=== PATIENT | female | born 1930 | race Caucasian/White ===

== ENCOUNTER 2017-01-11 12:29 | Inpatient (IN) ==
[2017-01-11 14:43] LABS: Basophils # 0.1 K/mcL (0.0-0.2); Basophils % 0.6 %; Eosinophils # 0.2 K/mcL (0.0-0.6); Eosinophils % 1.3 %; Hemoglobin 11.8 g/dL (11.5-15.4); Immature Granulocytes % 0.4 % (0-4); Lymphocytes # 1.9 K/mcL (0.6-4.6); Lymphocytes % 16.5 %; Mean Corpuscular HGB Conc 31.9 g/dL (31.6-35.5); Mean Corpuscular Hemoglobin 26.9 pg (28.0-33.3); Mean Corpuscular Volume 84.5 fL (83.0-100.0); Mean Platelet Volume 10.7 fL (9.4-12.4); Monocytes % 8.8 %; Neutrophils # 8.1 K/mcL (1.6-8.9); Platelet Count 300 K/mcL (140-400); Red Blood Count 4.38 M/mcL (3.82-4.97); Segmented Neutrophils % 72.4 %
[2017-01-11 14:58] LABS: Albumin 3.4 g/dL (3.5-5.0); Albumin/Globulin Ratio 0.9 (1.1-2.2); Bilirubin,Direct 0.3 mg/dL (0.0-0.5); Bilirubin,Indirect 0.5 mg/dL (0.0-1.2); Bilirubin,Total 0.8 mg/dL (0.2-1.2); Calcium 9.6 mg/dL (8.6-10.8); Potassium 4.5 mEq/L (3.5-4.5); Total Protein 7.4 g/dL (6.0-8.3)
--- NOTE | 2017-01-11 15:56 | Emergency Department Note ---
Disposition Clinical Impression: Epigastric pain, Bigeminal rhythm, Elevated troponin Disposition: Admitted As Inpatient Condition: Undetermined Time of Disposition: 17:32 Abdominal Pain HPI - General Chief Complaint: ED Abdominal Pain Stated Complaint: Very sick/stomach ache Time Seen by Provider: 01/11/17 15:29 Source: patient Mode of arrival: ambulatory Limitations: no limitations Nursing Notes Reviewed: Yes Vital Signs Reviewed: Yes - History of Present Illness HPI Narrative: 86-year-old female arrives to [facility] emergency department complaining of multiple complaints including generalized weakness, nausea without vomiting, diarrhea with multiple episodes as well as abdominal pain. The patient states that this pain in her abdomen has been intermittent over the course of the past 3 weeks but acutely worsened over the past 3-4 days. The patient states that she had one episode of black colored stool. She states that his abdominal pain is not normal for her. The patient does admit to intermittent chest pain as well. The patient has some exertional dyspnea that she is also complaining of. The patient denies any other complaints at this time and is resting comfortably in the bed. The patient's vital signs are reassuring here in the emergency Department with any acute findings. Onset (ago): day(s) (4 on ongoing over 3 weeks) Consistency: intermittent, Worsening Location: diffuse Pain Severity: moderate Pain Scale: 8 Quality: cramping Radiation: LUQ, LLQ Migration to: periumbilical Improves with: nothing Worsens with: nothing Associated symptoms: Reports: nausea, diarrhea, melena Treatments prior to arrival: none - Related Data Home Medications Medication Instructions Recorded Confirmed Ascorbate Calcium [Vitamin C] 500 mg PO DAILY 01/11/17 01/11/17 Diltiazem HCl [Diltiazem 24Hr Cd] 120 mg PO DAILY 01/11/17 01/11/17 Ferrous Gluconate 324 mg PO DAILY 01/11/17 01/11/17 Furosemide [Lasix] 40 mg PO DAILY 01/11/17 01/11/17 HYDROcodone/Acet 5/325 mg [[place] 0.5 - 1 tab PO BID PRN 01/11/17 01/11/17 5-325 mg] Levothyroxine [Synthroid] 100 mcg PO 0630 01/11/17 01/11/17 Simvastatin [Zocor] 40 mg PO HS 01/11/17 01/11/17 Allergies Allergy/AdvReac Type Severity Reaction Status Date / Time No Known Allergies Allergy Verified 01/11/17 12:53 All systems ED: reviewed and negative except as stated. Constitutional: Denies: fever, chills, weakness, weight change Cardiovascular: Reports: chest pain, dyspnea on exertion. Denies: palpitations , edema, syncope Respiratory: Reports: dyspnea. Denies: cough, wheezes, hemoptysis, stridor Gastrointestinal: Reports: abdominal pain, nausea, diarrhea, melena. Denies: vomiting, constipation, hematemesis, hematochezia Musculoskeletal: Denies: back pain, neck pain, arthralgia, myalgia Integumentary: Denies: rash, abrasion, lesions Neurological: Denies: headache, weakness, numbness, paresthesias, confusion, abnormal gait, vertigo Abdominal Pain PMH - Past Medical History Medical history: Reports: diabetes, hyperlipidemia, hypertension, thyroid disease Female Surgical History: Reports: cholecystectomy Psychiatric history: Reports: no psych history - Social History Smoking status: Former smoker Alcohol use: Reports: none Drug use: Reports: none Physical Exam - General Limitations: no limitations General appearance: alert, in no apparent distress - Head Head exam: atraumatic, normocephalic, normal inspection - ENT ENT exam: normal exam, normal oropharynx, mucous membranes moist - Neck Neck exam: Present: normal inspection, full ROM, trachea midline - Chest Chest inspection: Present: normal inspection, symmetric chest wall rise - Respiratory Respiratory exam: Present: normal lung sounds bilaterally - Cardiovascular Cardiovascular exam: Present: regular rate, normal rhythm, normal heart sounds - Abdominal Exam Abdominal exam: Present: soft, tenderness (Left sided and periumbilical), guarding (Voluntary). Absent: distention, rebound, rigidity, Ohara's sign, Rovsing's sign, tenderness at McBurney's Point, pulsatile mass, scar - Extremities Exam Extremities exam: Present: normal inspection, full ROM. Absent: tenderness, pedal edema Course Vital Signs Temperature 98.8 F 01/11/17 12:53 Pulse Rate 66 01/11/17 12:53 Respiratory Rate 16 01/11/17 12:53 Blood Pressure 164/69 01/11/17 12:53 O2 Sat by Pulse Oximetry 95 01/11/17 12:53 Temperature 98.6 F 01/12/17 19:41 Pulse Rate 59 01/12/17 19:41 Respiratory Rate 16 01/12/17 19:41 Blood Pressure 156/61 01/12/17 19:41 O2 Sat by Pulse Oximetry 97 01/12/17 19:41 Oxygen Delivery Oxygen Delivery Room Air Abdominal Pain - MDM Narrative Medical decision making narrative: His workup here in the emergency department demonstrates an elevated troponin. With the patient's of bigeminal pattern combined with this elevation in troponin and chest pain, we will admit the patient for ACS rule out. In addition the patient does have epigastric pain consistent with a gastric ulcer which is also reinforced my findings on the CT scan. The patient was given 1 dose of Protonix here in the emergency department. We will admit the patient to the hospitalist at this time. Patient agrees to plan. Accepted by Dr. Reid. - Lab Data Lab results reviewed: Yes I reviewed the patient's lab results. Result diagrams: 01/12/17 09:49 01/12/17 01:45 Lab Results 01/11/17 01/11/17 01/11/17 Range/Units 14:37 14:37 14:37 WBC 11.2 H (4.3-11.1) K/mcL RBC 4.38 (3.82-4.97) M/mcL Hgb 11.8 (11.5-15.4) g/dL Hct 37.0 (35.3-44.9) % MCV 84.5 (83.0-100.0) fL MCH 26.9 L (28.0-33.3) pg MCHC 31.9 (31.6-35.5) g/dL RDW 15.0 H (11.5-14.5) % Plt Count 300 (140-400) K/mcL MPV 10.7 (9.4-12.4) fL Immature Gran % 0.4 (0-4) % Seg Neutrophils % 72.4 % Lymphocytes % 16.5 % Monocytes % 8.8 % Eosinophils % 1.3 % Basophils % 0.6 % Neutrophils # 8.1 (1.6-8.9) K/mcL Lymphocytes # 1.9 (0.6-4.6) K/mcL Monocytes # 1.0 (0.0-1.3) K/mcL Eosinophils # 0.2 (0.0-0.6) K/mcL Basophils # 0.1 (0.0-0.2) K/mcL Sodium 138 (136-145) mEq/L Potassium 4.5 (3.5-4.5) mEq/L Chloride 106 (98-109) mEq/L Carbon Dioxide 20 (19-29) mEq/L BUN 57 H (7-20) mg/dL Creatinine 3.27 H (0.57-1.11) mg/dL Est GFR ( Amer) 16 L (> 60) Est GFR (Non-Af Amer) 13 L (> 60) BUN/Creatinine Ratio 17 (6-26) Glucose 241 H (70-99) mg/dL Calculated Osmolality 310 H (280-300) Calcium 9.6 (8.6-10.8) mg/dL Total Bilirubin 0.8 (0.2-1.2) mg/dL Direct Bilirubin 0.3 (0.0-0.5) mg/dL Indirect Bilirubin 0.5 (0.0-1.2) mg/dL AST 16 (5-34) Units/L ALT 13 (0-55) Units/L Alkaline Phosphatase 120 (38-126) Units/L Troponin I 0.08 H* (0-0.03) ng/mL Serum Total Protein 7.4 (6.0-8.3) g/dL Albumin 3.4 L (3.5-5.0) g/dL Globulin 4.0 H (2.4-3.5) g/dL Albumin/Globulin Ratio 0.9 L (1.1-2.2) Lipase 17 (8-78) Units/L - Radiology Data Radiology results reviewed: Yes I reviewed the patient's radiology results. - EKG Data EKG attestation: Yes I reviewed and interpreted this EKG. EKG results narrative: Heart rate 73 bpm. TX interval 174 ms. QTc 416 ms. Normal axis. Normal sinus rhythm with bigeminal pattern. No ST elevation or ST depression noted. No previous EKG on record. Attestation Statement - Attestation Attestation: I, Ash Seth, examined this patient and my medical decision-making was reviewed with the SUPERVISOR EDUCATION/PA/Advanced Practice Nurse/Resident Physician. I agree with the documented findings, disposition and treatment plan as described except to the extent set forth below. 86 yo female presents with concerns of generalized weakness, nausea, diarrhea and abdominal pain. Patient states that her pain has been intermittent over the past 3 weeks but has worsened over the past 3-4 days. Patient does report exertional dyspnea. She is resting comfortably in the emergency department during her evaluation. Initial EKG showed normal sinus rhythm with a rate of 73 with PVCs and bigeminy pattern. Initial troponin mildly elevated at 0.08. Patient will be admitted to the hospital for further care and evaluation. Patient comfortable with this plan.
[2017-01-11] MEDS ORDERED: 0.9 % Sodium Chloride 1,000 ML IVC ONE (17:03)
[2017-01-11] MEDS ORDERED: Nitroglycerin 0.4 MG TAB.SUBL SL PRN ×2 (17:12→21:33)
[2017-01-11] MEDS ORDERED: *HR* Labetalol 100 MG/20 ML MDV IVP ONE (17:16)
[2017-01-11] MEDS ORDERED: Ondansetron 4 MG/2 ML VIAL IVP PRN (19:03)
[2017-01-11] MEDS ORDERED: Acetaminophen 325 MG TABLET PO PRN (19:03)
[2017-01-11] MEDS ORDERED: Naloxone 0.4 MG/ML INJ IVP PRN (19:03)
--- NOTE | 2017-01-11 19:29 | Internal Med History&Physical ---
<Celi Davidson - Last Filed: 01/11/17 20:21> Date of Encounter: 01/11/17 Time of Encounter: 19:24 Assessment and Plan (1) Chest pain Current visit: Yes Status: Acute Patient with chest pain as well as shortness of breath on exertion. Troponin 0.08 in the setting of ISAIAH on CKD. Patient is hypertensive and EKG showed bigeminy without any ST elevations or depressions. There is also concern for possible GI bleeding as patient reporting black stools and CT is consistent with possible peptic ulcer, so no aspirin was given. Continuous care asst serial troponins Lipid panel with morning labs. Cardiology consulted, Dr. Pierre in agreement with plan and will see patient in the morning. Qualifiers: Chest pain type: precordial pain Qualified Code(s): R07.2 - Precordial pain (2) Gastritis Current visit: Yes Status: Acute Patient reports abdominal pain, nausea and diarrhea for the last few weeks. She reports occasional black stool. She is on iron supplements. CT abdomen and pelvis showed inflammatory changes and wall thickening of the distal stomach consistent with possible peptic ulcer. Patient has epigastric tenderness. FOB ordered. Protonix 40mg IVP BID clear liquid diet Recheck H/H tonight and CBC in the morning. Qualifiers: Gastritis type: unspecified gastritis Chronicity: acute Gastritis bleeding: presence of bleeding unspecified Qualified Code(s): K29.00 - Acute gastritis without bleeding (3) Diarrhea Current visit: Yes Status: Acute Patient reporting abdominal pain and diarrhea for the last several weeks and reporting occasional black stools. She is on iron and Hgb is 11.8, will get FOB and recheck H/H tonight. Clear liquid diet. IV fluids - 1L bolus given in ED, will continue with 0.9NS at 100mL/hr. Qualifiers: Diarrhea type: unspecified type Qualified Code(s): R19.7 - Diarrhea, unspecified (4) Bigeminal rhythm Current visit: Yes Status: Acute EKG showed Bigeminy. Patient denies any history of arrhythmia, but she is on Cardizem on her home medications. Continuous care asst Cardiology consulted. (5) Acute on chronic kidney failure Current visit: Yes Status: Acute Patient with Creatinine of 3.27, up from baseline of 2.86. Likely secondary to poor appetite and diarrhea per patient report. UA was not consistent with UTI. IV fluids, 1L bolus given in ED, will continue with 0.9NS at 100mL/hr. Recheck chemistry in the morning. Qualifiers: Acute renal failure type: unspecified Chronic kidney disease stage: stage 3 (moderate) Qualified Code(s): N17.9 - Acute kidney failure, unspecified; N18.3 - Chronic kidney disease, stage 3 (moderate) (6) Hypertensive urgency Current visit: Yes Status: Acute Patient has been hypertensive since arrival, with blood pressures running 200s/ 100s. Patient given IV labetalol and SL nitro in the ED without much response. Will give Hydralazine 10mg IVP Q6hr PRN. (7) DVT prophylaxis Current visit: Yes Status: Acute Sequential compression devices. pharmacologic prophylaxis is contraindicated in possible GI bleed. Internal Medicine - H&P: HPI Chief complaint: chest pain, abdominal pain Admitted From: Emergency Dept Plans for Post Hospital Care: Home History of present illness: Ms. Mas is a 86 year old female with hypertension, hyperlipidemia, type 2 diabetes, hypothyroid, and chronic kidney disease presented to the emergency department today with complaints of weakness, diarrhea, chest pain. Patient reports that for the last several weeks she has had abdominal pain and diarrhea , with occasional black stools. She reports that today she developed chest pain and shortness of breath, her daughter reports patient has been short of breath on exertion. Patient also reports weakness. She denies any palpitations , headache, lightheadedness, numbness or tingling. Evaluation in the emergency department included a CT of the abdomen and pelvis which showed inflammatory changes and wall thickening of the distal stomach consistent with possible peptic ulcer disease. Patient was in acute kidney failure with BUN of 57 and creatinine of 3.27 up from her previous of 2.86. Troponin was elevated at 0.08. EKG showed sinus rhythm with PVCs in a pattern of bigeminy with no ST elevations or depressions. Patient was hypertensive with blood pressures in 180s-200s systolic. Patient was given 1L bolus, labetalol and nitro in ED. On exam, patient alert and oriented, in no distress. Heart has irregular rhythm with normal rate, lungs are clear. Abdomen is soft, but tender to palpation. No peripheral edema. Past Med Surg Social Fam HX - Past Medical History Medical history: diabetes, hyperlipidemia, hypertension, thyroid disease Psychiatric history: no psych history - Past Surgical History Surgical History: cholecystectomy - Social History Smoking Status: Former smoker Smokeless Tobacco Status: No Alcohol use: none Drug use: none - Family History Sister Living Status: Father Living Status: Brother Living Status: Internal Medicine - H&P: Meds Ascorbate Calcium [Vitamin C] 500 mg PO DAILY 01/11/17 [History] Diltiazem HCl [Diltiazem 24Hr Cd] 120 mg PO DAILY 01/11/17 [History] Ferrous Gluconate 324 mg PO DAILY 01/11/17 [History] Furosemide [Lasix] 40 mg PO DAILY 01/11/17 [History] HYDROcodone/Acet 5/325 mg [[place] 5-325 mg] 0.5 - 1 tab PO BID PRN 01/11/17 [ History] Levothyroxine [Synthroid] 100 mcg PO 0630 01/11/17 [History] Simvastatin [Zocor] 40 mg PO HS 01/11/17 [History] 3 Allergy/AdvReac Type Severity Reaction Status Date / Time No Known Allergies Allergy Verified 01/11/17 12:53 All Systems PM: A 10-system review of systems was performed and is negative for pertinent findings except as documented above in the HPI. - Constitutional Constitutional: weakness, no chills, no fever(s), no night sweats - EENT Eyes: no change in vision, no discharge, no pain, no photophobia Ears: no ear discharge, no ear pain, no tinnitus Nose, mouth and throat: no dysphagia, no nasal discharge, no neck pain, no sore throat - Cardiovascular Cardiovascular ROS IM: chest pain, dyspnea on exertion, no diaphoresis, no dyspnea, no lightheadedness, no palpitations, no syncope - Respiratory Respiratory: no cough, no dyspnea, no wheezing, no excessive phlegm production - Gastrointestinal Gastrointestinal: abdominal pain, diarrhea, melena, nausea, no hematemesis, no hematochezia, no vomiting - Genitourinary Genitourinary: no change in urinary stream, no dysuria, no flank pain, no hematuria - Musculoskeletal Musculoskeletal ROS IM: no numbness, no tingling - Integumentary Integumentary IM: no rash, no unusual bruising - Neurological Neurological ROS: no confusion, no convulsions, no focal weakness, no numbness, no tingling, no tremor(s) - Hematologic/Lymphatic Hematologic/Lymphatic: no easy bruising - Constitutional Vitals: Temp Pulse Resp BP Pulse Ox 0 F L 70 18 180/88 99 01/11/17 18:16 01/11/17 17:25 01/11/17 18:16 01/11/17 18:16 01/11/17 17:25 General appearance: Present: A&O X 3, pleasant, no acute distress - Head Head exam: Present: atraumatic, normocephalic - Eye Eye exam: Present: PERRL, conjuntiva pink, sclera anicteric Pupils: Present: PERRL - Neck Neck exam general surgery: Present: supple, trachea midline. Absent: lymphadenopathy - Respiratory Respiratory exam: Present: CTAB. Absent: accessory muscle use, rales, rhonchi, wheezes - Cardiovascular Cardiovascular exam: Present: irregular rhythm, RRR, +S1, +S2. Absent: diastolic murmur, gallop, rubs, systolic murmur - GI/Abdominal GI/Abdominal exam: Present: normal bowel sounds, soft, tenderness, no peritoneal signs. Absent: distended - Extremities Exam Extremities exam: Present: warm, radial pulses palpable and symmetrical. Absent : calf tenderness, cyanotic, pedal edema - Neurological Exam Neurological exam: Present: CN II-XII intact, oriented X3, no focal deficits. Absent: pronater drift, facial droop, speech deficit - Skin Skin exam: Present: dry, intact Internal Med - H&P Results - Labs CBC & Chem 7: 01/11/17 14:37 01/11/17 14:37 Labs: All Lab Results (24 Hours) 01/11/17 01/11/17 01/11/17 Range/Units 14:37 14:37 14:37 WBC 11.2 H (4.3-11.1) K/mcL RBC 4.38 (3.82-4.97) M/mcL Hgb 11.8 (11.5-15.4) g/dL Hct 37.0 (35.3-44.9) % MCV 84.5 (83.0-100.0) fL MCH 26.9 L (28.0-33.3) pg MCHC 31.9 (31.6-35.5) g/dL RDW 15.0 H (11.5-14.5) % Plt Count 300 (140-400) K/mcL MPV 10.7 (9.4-12.4) fL Immature Gran % 0.4 (0-4) % Seg Neutrophils % 72.4 % Lymphocytes % 16.5 % Monocytes % 8.8 % Eosinophils % 1.3 % Basophils % 0.6 % Neutrophils # 8.1 (1.6-8.9) K/mcL Lymphocytes # 1.9 (0.6-4.6) K/mcL Monocytes # 1.0 (0.0-1.3) K/mcL Eosinophils # 0.2 (0.0-0.6) K/mcL Basophils # 0.1 (0.0-0.2) K/mcL Sodium 138 (136-145) mEq/L Potassium 4.5 (3.5-4.5) mEq/L Chloride 106 (98-109) mEq/L Carbon Dioxide 20 (19-29) mEq/L BUN 57 H (7-20) mg/dL Creatinine 3.27 H (0.57-1.11) mg/dL Est GFR ( Amer) 16 L (> 60) Est GFR (Non-Af Amer) 13 L (> 60) BUN/Creatinine Ratio 17 (6-26) Glucose 241 H (70-99) mg/dL Calculated Osmolality 310 H (280-300) Calcium 9.6 (8.6-10.8) mg/dL Total Bilirubin 0.8 (0.2-1.2) mg/dL Direct Bilirubin 0.3 (0.0-0.5) mg/dL Indirect Bilirubin 0.5 (0.0-1.2) mg/dL AST 16 (5-34) Units/L ALT 13 (0-55) Units/L Alkaline Phosphatase 120 (38-126) Units/L Troponin I 0.08 H* (0-0.03) ng/mL Serum Total Protein 7.4 (6.0-8.3) g/dL Albumin 3.4 L (3.5-5.0) g/dL Globulin 4.0 H (2.4-3.5) g/dL Albumin/Globulin Ratio 0.9 L (1.1-2.2) Lipase 17 (8-78) Units/L - Diagnostic Studies CT scan - abdomen Additional comments: Abdomen/Pelvis CT 01/11/17 15:51 IMPRESSION: Moderate motion limitation. Inflammatory changes and wall thickening of the distal stomach possibly extending into the proximal duodenum favored to represent peptic ulcer disease. No definite perforation noted at this point. Underlying malignancy less likely but cannot be excluded. Extensive diverticulosis. Incidental note of noncalcified nodule right lung base. Fleischner Society guidelines for follow-up and management of incidentally detected pulmonary nodules: Single Solid Nodule: Nodule size less than 6 mm In a low-risk patient, no routine follow-up. In a high-risk patient, optional CT at 12 months. - Low risk patients include individuals with minimal or absent history of smoking and other known risk factors. - High risk patients include individuals with a history or smoking or known risk factors. Radiology 2017 http://pubs.rsna.org/doi/full/10.1148/radiol.[email or web address] D/ / 01/11/2017 16:57:43 Berlin De Leon MD / segun Interpreting Provider: Berlin De Leon MD <Avis Camarena - Last Filed: 01/12/17 00:59> Date of Encounter: 01/12/17 Time of Encounter: 00:58 Internal Medicine - H&P: HPI History of present illness: Ms. Mas is a 86 year old female All Systems PM: A 10-system review of systems was performed and is negative for pertinent findings except as documented above in the HPI. - Constitutional Vitals: Temp Pulse Resp BP Pulse Ox 97.6 F 40 17 179/64 98 01/11/17 19:27 01/11/17 19:27 01/11/17 19:27 01/11/17 21:55 01/11/17 19:27 Internal Med - H&P Results - Labs CBC & Chem 7: 01/11/17 22:09 01/11/17 14:37 Labs: Short CBC 01/11/17 Range/Units 22:09 Hgb 11.1 L (11.5-15.4) g/dL Hct 34.9 L (35.3-44.9) % Cardiac Enzymes 01/11/17 Range/Units 20:17 Troponin I 0.23 H* (0-0.03) ng/mL - Attending Attestation Patient independently seen and examined. Resting in bed and reports of feeling significantly better since her hospitalization Denies any chest pain or epigastric discomfort at this time will continue to trend serial TNI Cardiology consultation requested Case discussed with CHELSY Davidson, I agree with her documented findings, assessment,and plan.
[2017-01-11] MEDS ORDERED: *HR* HYDROcodone/Acet 5/325 mg TABLET PO PRN (20:17)
[2017-01-11] MEDS ORDERED: *HR* Dextrose 50 % in Water (Syg) 50 ML SYRINGE IVP PRN (20:19)
[2017-01-11] MEDS ORDERED: Dextrose Gel 15 GM PO PRN ×2 (20:19)
[2017-01-11] MEDS ORDERED: D5% in Water 1,000 ML IVC PRN (20:19)
[2017-01-11] MEDS: 0.9 % Sodium Chloride 1,000 ML IVC SCH (20:45)
[2017-01-11] MEDS: Pantoprazole 40 MG VIAL IVP SCH (20:57)
--- NOTE | 2017-01-11 22:12 | Event Note ---
Date of Encounter: 01/11/17 Time of Encounter: 22:10 Second troponin elevated to 0.23. Repeat EKG unchanged from previous. Patient reports she is chest pain free at this point. Discussed again with Dr. Pierre , who felt it prudent to continue to watch troponins and hold off on any heparin at this point.
[2017-01-11 22:21] LABS: Hematocrit 34.9 % (35.3-44.9); Hemoglobin 11.1 g/dL (11.5-15.4)
[2017-01-11 22:33] LABS: Hemoglobin A1C 5.9 %
[2017-01-12] MEDS ORDERED: Insulin LISPRO 300 UNITS/3 ML VIAL SQ SCH
[2017-01-12 02:01] LABS: Basophils # 0.1 K/mcL (0.0-0.2); Basophils % 0.7 %; Eosinophils # 0.2 K/mcL (0.0-0.6); Eosinophils % 2.3 %; Hematocrit 32.3 % (35.3-44.9); Hemoglobin 10.3 g/dL (11.5-15.4); Immature Granulocytes % 0.3 % (0-4); Lymphocytes # 1.8 K/mcL (0.6-4.6); Lymphocytes % 19.2 %; Mean Corpuscular HGB Conc 31.9 g/dL (31.6-35.5); Mean Corpuscular Hemoglobin 26.8 pg (28.0-33.3); Mean Corpuscular Volume 84.1 fL (83.0-100.0); Mean Platelet Volume 10.7 fL (9.4-12.4); Monocytes # 1.1 K/mcL (0.0-1.3); Monocytes % 11.6 %; Neutrophils # 6.1 K/mcL (1.6-8.9); Platelet Count 260 K/mcL (140-400); Red Blood Count 3.84 M/mcL (3.82-4.97); Segmented Neutrophils % 65.9 %
[2017-01-12 02:14] LABS: Calcium 8.7 mg/dL (8.6-10.8); Chol/HDL Ratio 3.1 (0-4.9); Potassium 4.1 mEq/L (3.5-4.5)
[2017-01-12 03:51] LABS: Bilirubin,Urine Negative (Negative); Blood,Urine Negative (Negative); Clarity,Urine Clear (Clear); Color,Urine Yellow (Yellow); Glucose,Urine (UA) Normal (Normal); Ketones,Urine Negative (Negative); Leukocyte Esterase,Urine Moderate (Negative); Nitrite,Urine Negative (Negative); Protein,Urine 100 mg/dL (Neg-Trace); Specific Gravity,Urine 1.013 (1.010-1.025); Urobilinogen,Urine Normal (Normal)
[2017-01-12 03:52] LABS: Bacteria,Urine None Seen per hpf (None-Few); Hyaline Casts,Urine None Seen per lpf (None-Few); RBC,Urine 0-3 per hpf (0-3); Squamous Epithelial Cell,Urine Many per lpf (None-Few); WBC,Urine 30-50 per hpf (0-3)
[2017-01-12] MEDS: 0.9 % Sodium Chloride 1,000 ML IVC SCH ×2 (06:18→19:17)
[2017-01-12] MEDS: Pantoprazole 40 MG VIAL IVP SCH ×2 (06:19→16:49)
[2017-01-12 09:59] LABS: Hematocrit 31.8 % (35.3-44.9); Hemoglobin 10.2 g/dL (11.5-15.4)
[2017-01-12] MEDS: Diltiazem CD (24hr) 120 MG CAPSULE PO SCH (10:17)
[2017-01-12] MEDS: Insulin LISPRO 300 UNITS/3 ML VIAL SQ SCH ×4 (10:17→21:07)
--- NOTE | 2017-01-12 11:03 | Cardiology Consult Note ---
Date of Encounter: 01/12/17 Time of Encounter: 11:00 Assessment and Plan (1) Elevated troponin Current Visit: Yes Status: Acute Mild troponin elevation 0.23, 0.21 in the setting of ISAIAH/CKD, and uncontrolled hypertension b/p /. Doubt ACS. C/o atypical chest pain and abdominal pain. CT abd shows distal stomach wall thickening suggestive of peptic ulcer disease. Recommend GI eval. TTE pending. Further recommendation to follow. (2) Chest pain Current Visit: Yes Status: Acute Atypical chest pain. No pain free. Likely GI related. Mild troponin in the setting of ISAIAH and HTN. CT of abdomen shows changes suggestive of peptic ulcer disease. She does have multiple cardiac risk factors including HTN, HLD, DM type II. TTE pending. She is not a candidate for ischemic eval in the setting of possible GI bleed , acute peptic ulcer disease, and ISAIAH. Discussed with patient and she voices understanding. Qualifiers: Chest pain type: precordial pain Qualified Code(s): R07.2 - Precordial pain (3) Bigeminal rhythm Current Visit: Yes Status: Acute EKG shows Sr with bigeminal PVC. Telemetry shows SR with frequent PVC. Add metoprolol 25 mg BID. TTE pending. Discussion w patient/family: The assessment and plan as outlined above was discussed with the patient and/or family members who expressed understanding and agreement. All questions were answered. Thank you for involving us in the care of your patient. Please call with any questions. History of Present Illness Consult date: 01/12/17 Requesting physician: Celi Davidson Consult reason: Elevated troponin,CP Chief complaint: severe abdominal pain, chest discomfort History of present illness: Ms. Mas is a 86 year old female with a history of HTN, HLD, DM type II, CKD, who presents with severe abdominal pain, chest tightness, and diarrhea over the past three weeks. She reports symptoms increased over the past three days. She reports midsternal chest discomfort described as a burning sensation that occured with severe lower abdominal pain. C/o black tarry stools. She also c/o increasing SOB. Denies orthopnea, PND, or edema. SHe was found to have Elvevated troponin up to 0.23 and ISAIAH/CKD. HGB was stable. She was hypertensive with b/p up to 210/71. Cardiology consulted for elevated troponin. She is currently chest pain free. Continues to have abdominal pain. Past Med Surg Social Fam HX - Past Medical History Medical history: diabetes, hyperlipidemia, hypertension, renal disease, thyroid disease Psychiatric history: no psych history - Past Surgical History Surgical History: cholecystectomy - Social History Smoking Status: Former smoker Smokeless Tobacco Status: No Alcohol use: none Drug use: none - Family History Sister Living Status: Father Living Status: Brother Living Status: Medications and Allergies Ascorbate Calcium [Vitamin C] 500 mg PO DAILY 01/11/17 [History] Diltiazem HCl [Diltiazem 24Hr Cd] 120 mg PO DAILY 01/11/17 [History] Ferrous Gluconate 324 mg PO DAILY 01/11/17 [History] Furosemide [Lasix] 40 mg PO DAILY 01/11/17 [History] HYDROcodone/Acet 5/325 mg [[place] 5-325 mg] 0.5 - 1 tab PO BID PRN 01/11/17 [ History] Levothyroxine [Synthroid] 100 mcg PO 0630 01/11/17 [History] Simvastatin [Zocor] 40 mg PO HS 01/11/17 [History] 3 Allergy/AdvReac Type Severity Reaction Status Date / Time No Known Allergies Allergy Verified 01/11/17 12:53 All Systems Review: A 10-system review of systems was performed and is negative for pertinent findings except as documented above in the HPI. Physical Examination Vital Signs, Last 4 Hours Temp Pulse Resp BP Pulse Ox 01/12/17 07:06 98.2 F 63 18 175/68 99 General: Conversant, No Apparent Distress HEENT: Atraumatic, Normocephaly, Mucus Membranes Moist Neck: No JVD, Normal carotid pulses Cardiac: Reg Rate and Rhythm, Normal S1 and S2, No Murmur Lungs: Normal Breath Sounds, No Wheeze, Rales, Rhonchi Neuro: Alert and responsive, No focal deficits noted Abdomen: Soft, Other (Lower abdomen tender to palpation.) Skin: No rashes noted on visualized skin Musculoskeletal: No Chest Wall Tenderness Extremities: No Clubbing, No Cyanosis, No Edema, Normal Pulses Results 01/12/17 09:49 01/12/17 01:45 Lab Results 01/11/17 01/11/17 01/12/17 20:17 22:09 01:45 WBC Hgb 11.1 L Hct 34.9 L Plt Count Sodium Potassium Chloride Carbon Dioxide BUN Creatinine Glucose Calcium Troponin I 0.23 H* 0.21 H* 01/12/17 01/12/17 01/12/17 01:45 01:45 09:49 WBC 9.2 Hgb 10.3 L 10.2 L Hct 32.3 L 31.8 L Plt Count 260 Sodium 142 Potassium 4.1 Chloride 111 H Carbon Dioxide 18 L BUN 50 H Creatinine 2.73 H Glucose 145 H Calcium 8.7 Troponin I Abdomen/Pelvis CT 01/11/17 15:51 IMPRESSION: Moderate motion limitation. Inflammatory changes and wall thickening of the distal stomach possibly extending into the proximal duodenum favored to represent peptic ulcer disease. No definite perforation noted at this point. Underlying malignancy less likely but cannot be excluded. Extensive diverticulosis. Incidental note of noncalcified nodule right lung base. Fleischner Society guidelines for follow-up and management of incidentally detected pulmonary nodules: Single Solid Nodule: Nodule size less than 6 mm In a low-risk patient, no routine follow-up. In a high-risk patient, optional CT at 12 months. - Low risk patients include individuals with minimal or absent history of smoking and other known risk factors. - High risk patients include individuals with a history or smoking or known risk factors. Radiology 2017 http://pubs.rsna.org/doi/full/10.1148/radiol.[email or web address] D/ / 01/11/2017 16:57:43 Berlin De Leon MD / segun Interpreting Provider: Berlin De Leon MD - EKG Interpretation EKG results cardiology: personally reviewed (SR with PVC.) Consult Discharge Plan - Plan Referrals: Elton Gonzalez MD [Primary Care Provider] -
--- NOTE | 2017-01-12 13:05 | Internal Med Progress Note ---
Date of Encounter: 01/12/17 Time of Encounter: 12:55 - Assessment and plan (1) Epigastric pain Current Visit: Yes Status: Acute (2) Bigeminal rhythm Current Visit: Yes Status: Acute (3) Elevated troponin Current Visit: Yes Status: Acute (4) Chest pain Current Visit: Yes Status: Acute Qualifiers: Chest pain type: precordial pain Qualified Code(s): R07.2 - Precordial pain (5) Hypertensive urgency Current Visit: Yes Status: Acute - Subjective Interval history: Ms. Mas is a 86 year old female with a history of HTN, HLD, DM type II, CKD, who presents with severe abdominal pain, chest tightness, and diarrhea over the past three weeks. She reports symptoms increased over the past three days. She reports midsternal chest discomfort described as a burning sensation that occured with severe lower abdominal pain. C/o black tarry stools. She also c/o increasing SOB. Denies orthopnea, PND, or edema. SHe was found to have Elvevated troponin up to 0.23 and ISAIAH/CKD. HGB was stable. She was hypertensive with b/p up to 210/71 Patient was seen today. According to RN patient had CT abdomen on admission which showed duodenal ulcer. GI will be consulted to rule out malignancy or active bleed. However patient hemoglobin is stable. Blood pressure is elevated. According to RN patient may have bigeminy. Cardiology is on the case and have restarted Lopressor as well as an echocardiogram. Patient is also on calcium channel alfonso and together beta alfonso and calcium channel alfonso are keeping her heart rate and blood pressure down. - Constitutional Vitals: Temp Pulse Resp BP Pulse Ox 97.6 F 61 17 168/73 99 01/12/17 10:56 01/12/17 10:56 01/12/17 10:56 01/12/17 10:56 01/12/17 10:56 General appearance: Present: A&O X 3, pleasant, no acute distress - Head Head exam: Present: atraumatic, normocephalic - Eye Eye exam: Present: PERRL, conjuntiva pink, sclera anicteric Pupils: Present: PERRL - Neck Neck exam general surgery: Present: supple, trachea midline. Absent: lymphadenopathy - Respiratory Respiratory exam: Present: CTAB. Absent: accessory muscle use, rales, rhonchi, wheezes - Cardiovascular Cardiovascular exam: Present: RRR, +S1, +S2. Absent: diastolic murmur, gallop, rubs, systolic murmur - GI/Abdominal GI/Abdominal exam: Present: normal bowel sounds, soft, no peritoneal signs. Absent: distended, tenderness - Extremities Exam Extremities exam: Present: warm, radial pulses palpable and symmetrical. Absent : calf tenderness, cyanotic, pedal edema - Neurological Exam Neurological exam: Present: CN II-XII intact, oriented X3, no focal deficits. Absent: pronater drift, facial droop, speech deficit - Skin Skin exam: Present: dry, intact Internal Medicine: Result - Labs CBC & Chem 7: 01/12/17 09:49 01/12/17 01:45 Labs: Short CBC 01/11/17 01/12/17 01/12/17 Range/Units 22:09 01:45 09:49 WBC 9.2 (4.3-11.1) K/mcL Hgb 11.1 L 10.3 L 10.2 L (11.5-15.4) g/dL Hct 34.9 L 32.3 L 31.8 L (35.3-44.9) % Plt Count 260 (140-400) K/mcL Neutrophils # 6.1 (1.6-8.9) K/mcL BMP 01/12/17 01:45 Sodium 142 Potassium 4.1 Chloride 111 H Carbon Dioxide 18 L BUN 50 H Creatinine 2.73 H Glucose 145 H Calcium 8.7 Cardiac Enzymes 01/11/17 01/12/17 Range/Units 20:17 01:45 Troponin I 0.23 H* 0.21 H* (0-0.03) ng/mL Urine 01/12/17 Range/Units 03:30 Urine Color Yellow (Yellow) Urine Clarity Clear (Clear) Urine pH 6.0 (5.0-8.0) pH Units Ur Specific [place] 1.013 (1.010-1.025) Urine Protein 100 H (Neg-Trace) mg/dL Urine Glucose (UA) Normal (Normal) mg/dL - Impressions Impressions Chest X-Ray 01/12/17 11:17 IMPRESSION: Borderline cardiac enlargement with no pulmonary edema. Possible COPD with no focal infiltrate D/ / Johnie Yost MD / Johnie Yost MD Interpreting Provider: Johnie Yost MD - VTE Documentation of Mechanical Device: Intermittent pneumatic compression device Consult Discharge Plan - Plan Referrals: Elton Gonzalez MD [Primary Care Provider] -
--- NOTE | 2017-01-12 19:13 | Electrocardiograph Report ---
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
--- NOTE | 2017-01-12 19:26 | Electrocardiograph Report ---
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
[2017-01-13] MEDS: 0.9 % Sodium Chloride 1,000 ML IVC SCH (05:36)
[2017-01-13] MEDS: Pantoprazole 40 MG VIAL IVP SCH (05:38)
[2017-01-13] MEDS: Diltiazem CD (24hr) 120 MG CAPSULE PO SCH (08:09)
[2017-01-13] MEDS: Insulin LISPRO 300 UNITS/3 ML VIAL SQ SCH ×4 (08:09→21:54)
--- NOTE | 2017-01-13 08:15 | Cardiology Progress Note ---
Date of Encounter: 01/13/17 Time of Encounter: 08:10 Assessment and Plan (1) Elevated troponin Current Visit: Yes Status: Acute Mild troponin elevation 0.23, 0.21 likely demand ischemia in the setting of ISAIAH/ CKD, and uncontrolled hypertension b/p 210/71. TTE showed LVEF 60-65%. Normal left ventricular size and systolic function. Mild concentric hypertrophy of the left ventricle. EKG showed SR with bigeminal PVC. No prior EKG. Beta-alfonso started. HR now decrease to 40 at times. AVg HR 57 bpm. She is asymptomatic. Will decrease metoprolol. There is evidence of mild diastolic dysfunction of the left ventricle. Normal right ventricular size and function. Mild aortic stenosis. Mild mitral regurgitation. No pulmonary hypertension. C/o atypical chest pain and abdominal pain. CT abd shows distal stomach wall thickening suggestive of peptic ulcer disease. GI consulted. No further cardiac testing at this time. (2) Chest pain Current Visit: Yes Status: Acute Atypical chest pain. Now pain free. Likely GI related. Mild troponin in the setting of ISAIAH and HTN. CT of abdomen shows changes suggestive of peptic ulcer disease. She does have multiple cardiac risk factors including HTN, HLD, DM type II. TTE shows preserved EF and no WMA. She is not a candidate for ischemic eval in the setting of possible GI bleed , acute peptic ulcer disease, and ISAIAH. Discussed with patient and she voices understanding. Qualifiers: Chest pain type: precordial pain Qualified Code(s): R07.2 - Precordial pain (3) Bigeminal rhythm Current Visit: Yes Status: Acute EKG shows Sr with bigeminal PVC. Telemetry shows SR with frequent PVC. Add metoprolol 25 mg BID. TTE pending. Discussion w patient/family: The assessment and plan as outlined above was discussed with the patient and/or family members who expressed understanding and agreement. All questions were answered. Thank you for involving us in the care of your patient. Please call with any questions. Subjective Principal diagnosis: HTN, peptic ulcer disease, bigemeny Interval history: Ms. Mas states that she feels better today. She denies chest or abdominal pain. Denies SOB. Reports formed bowel movement this morning. No black stools. HR noted to be in the 40's at times with addition of beta-alfonso. WIll decrease beta-alfonso. Objective Vital Signs, Last 4 Hours Temp Pulse Resp BP Pulse Ox 01/13/17 07:05 97.8 F 60 17 166/60 95 General: Conversant, No Apparent Distress HEENT: Atraumatic, Normocephaly, Mucus Membranes Moist Neck: No JVD, Normal carotid pulses Cardiac: Reg Rate and Rhythm, Normal S1 and S2, No Murmur Lungs: Normal Breath Sounds, No Wheeze, Rales, Rhonchi Neuro: Alert and responsive, No focal deficits noted Abdomen: Soft, Other (abdomen tender to palpation.) Skin: No rashes noted on visualized skin Musculoskeletal: No Chest Wall Tenderness Extremities: No Clubbing, No Cyanosis, No Edema, Normal Pulses Results 01/13/17 08:28 01/12/17 01:45 Lab Results 01/12/17 09:49 Hgb 10.2 L Hct 31.8 L Abdomen/Pelvis CT 01/11/17 15:51 IMPRESSION: Moderate motion limitation. Inflammatory changes and wall thickening of the distal stomach possibly extending into the proximal duodenum favored to represent peptic ulcer disease. No definite perforation noted at this point. Underlying malignancy less likely but cannot be excluded. Extensive diverticulosis. Incidental note of noncalcified nodule right lung base. Fleischner Society guidelines for follow-up and management of incidentally detected pulmonary nodules: Single Solid Nodule: Nodule size less than 6 mm In a low-risk patient, no routine follow-up. In a high-risk patient, optional CT at 12 months. - Low risk patients include individuals with minimal or absent history of smoking and other known risk factors. - High risk patients include individuals with a history or smoking or known risk factors. Radiology 2017 http://pubs.rsna.org/doi/full/10.1148/radiol.[email or web address] D/ / 01/11/2017 16:57:43 Berlin De Leon MD / segun Interpreting Provider: Berlin De Leon MD Chest X-Ray 01/12/17 11:17 IMPRESSION: Borderline cardiac enlargement with no pulmonary edema. Possible COPD with no focal infiltrate D/ / Johnie Yost MD / Johnie Yost MD Interpreting Provider: Johnie Yost MD Echocardiogram 01/12/17 21:29 Impressions: LVEF 60-65%. Normal left ventricular size and systolic function. Mild concentric hypertrophy of the left ventricle. There is evidence of mild diastolic dysfunction of the left ventricle. Normal right ventricular size and function. Mild aortic stenosis. Mild mitral regurgitation. No pulmonary hypertension. Left Ventricular Wall Motion: Rest Echo Findings All wall segments showed normal motion. - Imaging and Cardiology Echo: report reviewed - EKG Interpretation EKG results cardiology: personally reviewed - VTE Documentation of Mechanical Device: Intermittent pneumatic compression device Consult Discharge Plan - Plan Referrals: Elton Gonzalez MD [Primary Care Provider] -
[2017-01-13 08:40] LABS: Basophils # 0.1 K/mcL (0.0-0.2); Eosinophils # 0.3 K/mcL (0.0-0.6); Eosinophils % 4.1 %; Hematocrit 32.8 % (35.3-44.9); Hemoglobin 10.1 g/dL (11.5-15.4); Immature Granulocytes % 0.4 % (0-4); Lymphocytes # 1.5 K/mcL (0.6-4.6); Lymphocytes % 20.2 %; Mean Corpuscular HGB Conc 30.8 g/dL (31.6-35.5); Mean Corpuscular Hemoglobin 26.6 pg (28.0-33.3); Mean Corpuscular Volume 86.5 fL (83.0-100.0); Monocytes # 0.8 K/mcL (0.0-1.3); Monocytes % 11.2 %; Neutrophils # 4.6 K/mcL (1.6-8.9); Platelet Count 246 K/mcL (140-400); Red Blood Count 3.79 M/mcL (3.82-4.97); Red Cell Distribution Width 15.2 % (11.5-14.5); Segmented Neutrophils % 63.1 %
--- NOTE | 2017-01-13 10:01 | Internal Med Progress Note ---
Date of Encounter: 01/13/17 Time of Encounter: 09:55 - Assessment and plan (1) Epigastric pain Current Visit: Yes Status: Acute (2) Bigeminal rhythm Current Visit: Yes Status: Acute (3) Chest pain Current Visit: Yes Status: Acute Qualifiers: Chest pain type: precordial pain Qualified Code(s): R07.2 - Precordial pain (4) Hypertensive urgency Current Visit: Yes Status: Acute (5) Peptic ulcer disease Current Visit: Yes Status: Acute (6) Chronic kidney disease, stage IV (severe) Current Visit: Yes Status: Acute (7) Demand ischemia Current Visit: Yes Status: Acute - Subjective Interval history: Ms. Mas is a 86 year old female with a history of HTN, HLD, DM type II, CKD, who presents with severe abdominal pain, chest tightness, and diarrhea over the past three weeks. She reports symptoms increased over the past three days. She reports midsternal chest discomfort described as a burning sensation that occured with severe lower abdominal pain. C/o black tarry stools. She also c/o increasing SOB. Denies orthopnea, PND, or edema. SHe was found to have Elvevated troponin up to 0.23 and ISAIAH/CKD. HGB was stable. She was hypertensive with b/p up to 210/71 Patient was seen today. Discuss at [facility] and labs reviewed. #[address] abdomen on admission which showed duodenal ulcer. GI is consulted to rule out malignancy or active bleed. However patient hemoglobin is stable. Switch IV PPI to oral Prilosec 40 twice a day. DC IV fluids #2 hypertensive urgency: Blood pressure is still elevated. He has been started on Lopressor and he is already on calcium channel alfonso but still Pressures are elevated. I will add low-dose lisinopril #3 elevated troponin and frequent PVCs/bigeminy Cardiology is on the case and have restarted Lopressor. echocardiogram shows normal LV systolic function with EF about 60% and no wall motion abnormality however [id number] diastolic dysfunction.. Patient is also on calcium channel alfonso and together beta alfonso and calcium channel alfonso are keeping her heart rate and blood pressure down. Cardiology thinks this is demand ischemia. #4 chronic kidney disease stage IV a borderline 5. Add low-dose lisinopril and follow creatinine - Constitutional Vitals: Temp Pulse Resp BP Pulse Ox 97.8 F 60 17 166/60 95 01/13/17 07:05 01/13/17 07:05 01/13/17 07:05 01/13/17 07:05 01/13/17 07:05 General appearance: Present: A&O X 3, pleasant, no acute distress, answers questions appropriately - Head Head exam: Present: atraumatic, normocephalic - Eye Eye exam: Present: PERRL, conjuntiva pink, sclera anicteric Pupils: Present: PERRL - Neck Neck exam general surgery: Present: supple, trachea midline. Absent: lymphadenopathy - Respiratory Respiratory exam: Present: CTAB. Absent: accessory muscle use, rales, rhonchi, wheezes - Cardiovascular Cardiovascular exam: Present: RRR, +S1, +S2. Absent: diastolic murmur, gallop, rubs, systolic murmur - GI/Abdominal GI/Abdominal exam: Present: normal bowel sounds, soft, tenderness, no peritoneal signs. Absent: distended Additional comments: Periumbilical tenderness no rebound bowel sounds active - Extremities Exam Extremities exam: Present: warm, radial pulses palpable and symmetrical. Absent : calf tenderness, cyanotic, pedal edema - Neurological Exam Neurological exam: Present: CN II-XII intact, oriented X3, no focal deficits. Absent: pronater drift, facial droop, speech deficit - Skin Skin exam: Present: dry, intact Internal Medicine: Result - Labs CBC & Chem 7: 01/13/17 08:28 01/12/17 01:45 Labs: Short CBC 01/12/17 01/13/17 Range/Units 09:49 08:28 WBC 7.3 (4.3-11.1) K/mcL Hgb 10.2 L 10.1 L (11.5-15.4) g/dL Hct 31.8 L 32.8 L (35.3-44.9) % Plt Count 246 (140-400) K/mcL Neutrophils # 4.6 (1.6-8.9) K/mcL - Impressions Impressions Chest X-Ray 01/12/17 11:17 IMPRESSION: Borderline cardiac enlargement with no pulmonary edema. Possible COPD with no focal infiltrate D/ / Johnie Yost MD / Johnie Yost MD Interpreting Provider: Johnie Yost MD Echocardiogram 01/12/17 21:29 Impressions: LVEF 60-65%. Normal left ventricular size and systolic function. Mild concentric hypertrophy of the left ventricle. There is evidence of mild diastolic dysfunction of the left ventricle. Normal right ventricular size and function. Mild aortic stenosis. Mild mitral regurgitation. No pulmonary hypertension. Left Ventricular Wall Motion: Rest Echo Findings All wall segments showed normal motion. Findings: Study Quality * Technically adequate exam. ECG Findings * Normal sinus rhythm. Left Ventricle * LVEF 60-65%. * Mild concentric left ventricular hypertrophy. * Mild left ventricular diastolic dysfunction. Aorta * Normally sized aortic root. Aortic Valve * No aortic regurgitation. * Aortic valve not well visualized. * Calcification is present. * Mild aortic stenosis. Mitral Valve * Normal mitral valve structure. * No mitral stenosis. * Moderate mitral annular calcification * Mild mitral regurgitation. Tricuspid Valve * Tricuspid valve not well visualized. * Trace tricuspid regurgitation. * Estimated RA pressure is 3 mmHg. * Estimated RVSP is 28 mmHg. * No pulmonary hypertension. Pulmonic Valve * Pulmonic valve is not well visualized. * No pulmonic stenosis. * No pulmonic regurgitation. Pulmonary Artery * Pulmonary artery not well visualized. Right Ventricle * Normal right ventricular structure and function. Left Atrium * Normal left atrial size. Right Atrium * Normal right atrial size. Pericardium * There is no pericardial effusion present. Interatrial Septum * No evidence of PFO by color Doppler. IVC * Normal IVC dimensions and inspiratory collapse. - VTE Documentation of Mechanical Device: Intermittent pneumatic compression device Consult Discharge Plan - Plan Referrals: Elton Gonzalez MD [Primary Care Provider] - 01/25/17 10:30 am
--- NOTE | 2017-01-13 10:54 | Gastroenterology Consult Note ---
<Tapan Benitez - Last Filed: 01/13/17 11:00> Date of Encounter: 01/13/17 Time of Encounter: 10:00 - Time Spent With Patient Total time spent is greater than 50% in coordination of care (as documented) at patient's floor/unit and/or counseling patient: GI History of Present Illness - Data of Consult Patient: new to practice Consult date: 01/13/17 Requesting Physician: Dany Villa MD - Consult Narrative Reason for consult: abdominal pain, diarrhea, black stool History of present illness: Ms. Mas is a 86 year old female with PMHx DM, HLD, HTN, CKD who presented to the the ED with c/o weakness, diarrhea, chest pain. Patient reports that for the last several weeks she has had abdominal pain, diarrhea, with occasional black stools for the past 2-[address] A/P shows inflammatory changes and wall thickening of the distal stomach possibly extending into the proximal duodenum favored to represent peptic ulcer disease. No definite perforation noted at this point. Underlying malignancy less likely but cannot be excluded. She has been started on Protonix BID. Troponin was peaked at 0.23 yesterday and this AM 0.21. Cardiology is following patient and believe this to be due to demand ischemia. Hgb on admission 11.8 this AM Hgb 10.2. Procedures: No records NSAIDs: None Anticoagulation: None A/P 1. Epigastric pain: CT A/P shows inflammatory changes and wall thickening of the distal stomach possibly extending into the proximal duodenum favored to represent peptic ulcer disease. No definite perforation noted at this point. Continue PPI. Plan for EGD tomorrow to r/o esophagitis, gastritis, duodenitis, PUD, MW tear, or AVM. Pt can have diet today, and NPO at midnight. 2. Elevated troponin: Cardiology believes this to be due to demand ischemia. 3. Anemia: Continue to monitor CBC and transfuse PRBC as needed. Plan for EGD tomorrow. Past Med Surg Social Fam HX - Past Medical History Medical history: diabetes, hyperlipidemia, hypertension, thyroid disease Psychiatric history: no psych history - Past Surgical History Surgical History: cholecystectomy - Social History Smoking Status: Former smoker Smokeless Tobacco Status: No Alcohol use: none Drug use: none - Family History Sister Living Status: Father Living Status: Brother Living Status: - Gastrointestinal Gastrointestinal: Present: as per HPI - Constitutional Constitutional: as per HPI - EENT Eyes: as per HPI Ears: Present: as per HPI Nose, mouth and throat: Present: as per HPI - Cardiovascular Cardiovascular ROS: Present: as per HPI - Respiratory Respiratory IM: Present: as per HPI - Genitourinary Genitourinary: Absent: change in color, Urinary frequency - Neurological ROS Neurological GI: Present: as per HPI - Hematologic/Lymphatic Hematologic/Lymphatic pediatric: Present: as per HPI - Musculoskeletal Musculoskeletal ROS GI: Present: as per HPI - Integumentary Integumentary GI: Present: as per HPI - Psychiatric ROS Psychiatric GI: Present: as per HPI - Endocrine Endocrine IM: Present: as per HPI - Constitutional Vitals: Temp Pulse Resp BP Pulse Ox 97.8 F 60 17 166/60 95 01/13/17 07:05 01/13/17 07:05 01/13/17 07:05 01/13/17 07:05 01/13/17 07:05 General appearance: Present: cooperative, A&O X 3, no acute distress, answers questions appropriately - Head Head exam: Present: atraumatic, normocephalic - Eye Eye exam: Present: normal appearance, sclera anicteric - ENT ENT exam: Present: mucous membranes dry - Neck Neck exam general surgery: Present: normal inspection, trachea midline - Respiratory Respiratory exam: Present: CTAB. Absent: rales, rhonchi - Cardiovascular Cardiovascular exam: Present: RRR, +S1, +S2 - GI/Abdominal GI/Abdominal exam: Present: soft, tenderness (epigastric), no peritoneal signs. Absent: distended, firm, guarding - Rectal Rectal exam: Present: deferred - Extremities Exam Extremities exam: Present: warm - Neurological Exam Neurological exam: Present: no focal deficits - Psychiatric Psychiatric exam: Present: normal affect, normal mood - Skin Skin exam: Present: dry, intact, normal color, warm Results - Labs CBC & Chem 7: 01/13/17 08:28 01/12/17 01:45 Labs: Last Result Calcium 8.7 mg/dL (8.6-10.8) 01/12/17 01:45 Troponin I 0.21 ng/mL (0-0.03) H* 01/12/17 01:45 Triglycerides 117 mg/dL (< 150) 01/12/17 01:45 Entire Visit Hgb 10.1 g/dL (11.5-15.4) L 01/13/17 08:28 Hct 32.8 % (35.3-44.9) L 01/13/17 08:28 Total Bilirubin 0.8 mg/dL (0.2-1.2) 01/11/17 14:37 AST 16 Units/L (5-34) 01/11/17 14:37 ALT 13 Units/L (0-55) 01/11/17 14:37 Lipase 17 Units/L (8-78) 01/11/17 14:37 - Impressions Impressions Chest X-Ray 01/12/17 11:17 IMPRESSION: Borderline cardiac enlargement with no pulmonary edema. Possible COPD with no focal infiltrate D/ / Johnie Yost MD / Johnie Yost MD Interpreting Provider: Johnie Yost MD Echocardiogram 01/12/17 21:29 Impressions: LVEF 60-65%. Normal left ventricular size and systolic function. Mild concentric hypertrophy of the left ventricle. There is evidence of mild diastolic dysfunction of the left ventricle. Normal right ventricular size and function. Mild aortic stenosis. Mild mitral regurgitation. No pulmonary hypertension. Left Ventricular Wall Motion: Rest Echo Findings All wall segments showed normal motion. Findings: Study Quality * Technically adequate exam. ECG Findings * Normal sinus rhythm. Left Ventricle * LVEF 60-65%. * Mild concentric left ventricular hypertrophy. * Mild left ventricular diastolic dysfunction. Aorta * Normally sized aortic root. Aortic Valve * No aortic regurgitation. * Aortic valve not well visualized. * Calcification is present. * Mild aortic stenosis. Mitral Valve * Normal mitral valve structure. * No mitral stenosis. * Moderate mitral annular calcification * Mild mitral regurgitation. Tricuspid Valve * Tricuspid valve not well visualized. * Trace tricuspid regurgitation. * Estimated RA pressure is 3 mmHg. * Estimated RVSP is 28 mmHg. * No pulmonary hypertension. Pulmonic Valve * Pulmonic valve is not well visualized. * No pulmonic stenosis. * No pulmonic regurgitation. Pulmonary Artery * Pulmonary artery not well visualized. Right Ventricle * Normal right ventricular structure and function. Left Atrium * Normal left atrial size. Right Atrium * Normal right atrial size. Pericardium * There is no pericardial effusion present. Interatrial Septum * No evidence of PFO by color Doppler. IVC * Normal IVC dimensions and inspiratory collapse. Consult Discharge Plan - Plan Referrals: Elton Gonzalez MD [Primary Care Provider] - 01/25/17 10:30 am <Danni Dyer - Last Filed: 01/13/17 21:54> Date of Encounter: 01/13/17 Time of Encounter: 18:10 - Time Spent With Patient Total time spent is greater than 50% in coordination of care (as documented) at patient's floor/unit and/or counseling patient: GI History of Present Illness - Data of Consult Requesting Physician: Dany Villa MD - Consult Narrative History of present illness: Ms. Mas is a 86 year old female - Constitutional Vitals: Temp Pulse Resp BP Pulse Ox 98.6 F 63 18 178/61 96 01/13/17 19:28 01/13/17 19:28 01/13/17 19:28 01/13/17 19:28 01/13/17 19:28 Results - Labs CBC & Chem 7: 01/13/17 08:28 01/12/17 01:45 Labs: Last Result Calcium 8.7 mg/dL (8.6-10.8) 01/12/17 01:45 Troponin I 0.21 ng/mL (0-0.03) H* 01/12/17 01:45 Triglycerides 117 mg/dL (< 150) 01/12/17 01:45 Entire Visit Hgb 10.1 g/dL (11.5-15.4) L 01/13/17 08:28 Hct 32.8 % (35.3-44.9) L 01/13/17 08:28 Total Bilirubin 0.8 mg/dL (0.2-1.2) 01/11/17 14:37 AST 16 Units/L (5-34) 01/11/17 14:37 ALT 13 Units/L (0-55) 01/11/17 14:37 Lipase 17 Units/L (8-78) 01/11/17 14:37 - Attending Attestation I examined this patient and my medical decision-making was reviewed with the Resident Physician. I agree with the documented findings, disposition and treatment plan as described except to the extent set forth below.
[2017-01-14 04:02] LABS: Basophils % 0.6 %; Eosinophils # 0.4 K/mcL (0.0-0.6); Eosinophils % 5.7 %; Hematocrit 29.1 % (35.3-44.9); Hemoglobin 9.1 g/dL (11.5-15.4); Immature Granulocytes % 0.3 % (0-4); Lymphocytes # 1.4 K/mcL (0.6-4.6); Lymphocytes % 22.5 %; Mean Corpuscular HGB Conc 31.3 g/dL (31.6-35.5); Mean Corpuscular Hemoglobin 26.9 pg (28.0-33.3); Mean Corpuscular Volume 86.1 fL (83.0-100.0); Monocytes # 0.9 K/mcL (0.0-1.3); Monocytes % 14.6 %; Neutrophils # 3.5 K/mcL (1.6-8.9); Platelet Count 215 K/mcL (140-400); Red Blood Count 3.38 M/mcL (3.82-4.97); Segmented Neutrophils % 56.3 %
[2017-01-14 04:11] LABS: Albumin/Globulin Ratio 0.9 (1.1-2.2); Bilirubin,Total 0.6 mg/dL (0.2-1.2); Calcium 8.3 mg/dL (8.6-10.8); Globulin 2.9 g/dL (2.4-3.5); Potassium 3.8 mEq/L (3.5-4.5)
[2017-01-14 04:16] LABS: Albumin 2.6 g/dL (3.5-5.0); Total Protein 5.5 g/dL (6.0-8.3)
[2017-01-14] MEDS: Insulin LISPRO 300 UNITS/3 ML VIAL SQ SCH ×4 (08:05→22:04)
--- NOTE | 2017-01-14 08:47 | Cardiology Progress Note ---
Date of Encounter: 01/14/17 Time of Encounter: 08:30 Assessment and Plan (1) Bigeminal rhythm Current Visit: Yes Status: Acute Initial EKG shows Sr with bigeminal PVC. There is intermittent bigemeny on telemetry. Metoprolol added. Patient HR decreases to upper 30's to 40's during waking hours. Metoprolol decreased yesterday. HE continued to be 40-50 HR . Avg HR 55 over last 24 hours. Will discontinue metoprolol and continue cardiazem. She is asymptomatic. Out-pt f/u will be coordinated by [facility]. Cardiology signing off. Call wilt questions. (2) Elevated troponin Current Visit: Yes Status: Acute Mild troponin elevation 0.23, 0.21 likely demand ischemia in the setting of ISAIAH/ CKD, and uncontrolled hypertension b/p 210/71. TTE showed LVEF 60-65%. Normal left ventricular size and systolic function. Mild concentric hypertrophy of the left ventricle. EKG showed SR with bigeminal PVC. No acute T changes. No prior EKG to compare. Beta-alfonso started. There is evidence of mild diastolic dysfunction of the left ventricle. Normal right ventricular size and function. Mild aortic stenosis. Mild mitral regurgitation. No pulmonary hypertension. C/o atypical chest pain and abdominal pain. CT abd shows distal stomach wall thickening suggestive of peptic ulcer disease. GI consulted. No further cardiac testing at this time. WIll hold off on asa at this time d/t possible GI bleeding. No bb due to bradycardia. Continue statin therapy. (3) Chest pain Current Visit: Yes Status: Acute Atypical chest pain. Now pain free. Likely GI related. Mild troponin in the setting of ISAIAH and HTN. CT of abdomen shows changes suggestive of peptic ulcer disease. She does have multiple cardiac risk factors including HTN, HLD, DM type II. TTE shows preserved EF and no WMA. She is not a candidate for ischemic eval in the setting of possible GI bleed , acute peptic ulcer disease, and ISAIAH. Discussed with patient and she voices understanding. Continue statin. Aggressive risk factor modification. Qualifiers: Chest pain type: precordial pain Qualified Code(s): R07.2 - Precordial pain Discussion w patient/family: The assessment and plan as outlined above was discussed with the patient and/or family members who expressed understanding and agreement. All questions were answered. Thank you for involving us in the care of your patient. Please call with any questions. Subjective Principal diagnosis: HTN, peptic ulcer disease, bigemeny Interval history: Ms. Mas states that she feels better today. She denies chest or abdominal pain. Denies SOB. Denies chest pain. HR improved but still low. NPO for EGD this am. Objective Vital Signs, Last 4 Hours Temp Pulse Resp BP Pulse Ox 01/14/17 06:29 97.9 F 57 17 166/65 94 General: Conversant, No Apparent Distress HEENT: Atraumatic, Normocephaly, Mucus Membranes Moist Neck: No JVD, Normal carotid pulses Cardiac: Reg Rate and Rhythm, Normal S1 and S2, No Murmur Lungs: Normal Breath Sounds, No Wheeze, Rales, Rhonchi Neuro: Alert and responsive, No focal deficits noted Abdomen: Soft, Non-Tender Skin: No rashes noted on visualized skin Musculoskeletal: No Chest Wall Tenderness Extremities: No Clubbing, No Cyanosis, No Edema, Normal Pulses Results 01/14/17 03:39 01/14/17 03:39 Lab Results 01/13/17 01/14/17 01/14/17 08:28 03:39 03:39 WBC 7.3 6.2 Hgb 10.1 L 9.1 L Hct 32.8 L 29.1 L Plt Count 246 215 Sodium 140 Potassium 3.8 Chloride 113 H Carbon Dioxide 17 L BUN 34 H D Creatinine 2.30 H Glucose 125 H Calcium 8.3 L Total Bilirubin 0.6 AST 12 ALT 11 Alkaline Phosphatase 92 - VTE Documentation of Mechanical Device: Intermittent pneumatic compression device Consult Discharge Plan - Plan Referrals: Elton Gonzalez MD [Primary Care Provider] - 01/25/17 10:30 am
[2017-01-14] MEDS: Diltiazem CD (24hr) 120 MG CAPSULE PO SCH (08:49)
[2017-01-14] MEDS ORDERED: *HR* Midazolam HCl 5 MG/5 ML VIAL IVP ONE (15:00)
[2017-01-14] MEDS ORDERED: 0.9 % Sodium Chloride 1,000 ML IVC SCH (15:00)
[2017-01-14] MEDS ORDERED: *HR* FentaNYL (PF) 100 MCG/2 ML VIAL ONE (15:01)
[2017-01-14] MEDS ORDERED: Simethicone 40 MG/0.6 ML MLS IR ONE (15:09)
[2017-01-14] MEDS ORDERED: Tetracaine/Benzocaine/Butamben 200MG/SPRAY (100SPY/BOT) MM ONE (15:09)
[2017-01-14] MEDS ORDERED: *HR* Midazolam HCl 5 MG/5 ML VIAL IVP PRN (15:09)
[2017-01-14] MEDS ORDERED: *HR* FentaNYL (PF) 100 MCG/2 ML VIAL IVP PRN (15:09)
--- NOTE | 2017-01-14 15:09 | Pre-Sedation Evaluation ---
Pre-sedation evaluation - Pre-sedation checklist Date of procedure: 01/14/17 Procedure: EGD Recent Vitals: Last Vital Signs Temp 97 F L 01/14/17 14:47 Pulse 67 01/14/17 14:47 Resp 18 01/14/17 14:47 BP 214/74 01/14/17 14:47 Pulse Ox 97 01/14/17 14:47 H&P (including ROS) documented in medical record: Yes Previous reaction to sedatives/anesthetics: Unknown Dietary Status: NPO after Midnight Dentition: No loose teeth or bridges ASA Classification *see protocol: CLASS III-Severe systemic disease Plan of Care: Pt appropriate candidate for procedure/moderate/conscious sedation , Risks/benefits of procedure/sedation discussed w/ patient/family
--- NOTE | 2017-01-14 15:30 | Internal Med Progress Note ---
Date of Encounter: 01/14/17 Time of Encounter: 15:28 - Assessment and plan (1) Epigastric pain Current Visit: Yes Status: Acute (2) Bigeminal rhythm Current Visit: Yes Status: Acute (3) Chest pain Current Visit: Yes Status: Acute Qualifiers: Chest pain type: precordial pain Qualified Code(s): R07.2 - Precordial pain (4) Hypertensive urgency Current Visit: Yes Status: Acute (5) Peptic ulcer disease Current Visit: Yes Status: Acute (6) Chronic kidney disease, stage IV (severe) Current Visit: Yes Status: Acute (7) Demand ischemia Current Visit: Yes Status: Acute - Subjective Interval history: Ms. Mas is a 86 year old female with a history of HTN, HLD, DM type II, CKD, who presents with severe abdominal pain, chest tightness, and diarrhea over the past three weeks. She reports symptoms increased over the past three days. She reports midsternal chest discomfort described as a burning sensation that occured with severe lower abdominal pain. C/o black tarry stools. She also c/o increasing SOB. Denies orthopnea, PND, or edema. SHe was found to have Elvevated troponin up to 0.23 and ISAIAH/CKD. HGB was stable. She was hypertensive with b/p up to 210/71 Patient was seen today. Discuss at [facility] and labs reviewed. #[address] abdomen on admission which showed duodenal ulcer. GI is consulted to rule out malignancy or active bleed. However patient hemoglobin is stable. Switch IV PPI to oral Prilosec 40 twice a day. DC IV fluids #2 hypertensive urgency: Blood pressure is still elevated. He has been on calcium channel alfonso but still Pressures are elevated. Lopressor was DC'd because of bradycardia. Low-dose lisinopril added but blood pressure is quite high this morning not sure if it is due to the stress of her EGD. Will watch very closely #3 elevated troponin and frequent PVCs/bigeminy Cardiology is on the case and have restarted Lopressor. echocardiogram shows normal LV systolic function with EF about 60% and no wall motion abnormality however [id number] diastolic dysfunction.. Patient is also on calcium channel alfonso and together beta alfonso and calcium channel alfonso are keeping her heart rate and blood pressure down. Night Dr. SRINIVASAN beta alfonso secondary to low heart rate. Cardiology thinks this is demand ischemia. #4 chronic kidney disease stage IV a borderline 5. Add low-dose lisinopril and follow creatinine - Constitutional Vitals: Temp Pulse Resp BP Pulse Ox 97 F L 62 18 180/81 96 01/14/17 14:47 01/14/17 15:25 01/14/17 15:25 01/14/17 15:25 01/14/17 15:25 General appearance: Present: A&O X 3, pleasant, no acute distress, answers questions appropriately - Head Head exam: Present: atraumatic, normocephalic - Eye Eye exam: Present: PERRL, conjuntiva pink, sclera anicteric Pupils: Present: PERRL - Neck Neck exam general surgery: Present: supple, trachea midline. Absent: lymphadenopathy - Respiratory Respiratory exam: Present: CTAB. Absent: accessory muscle use, rales, rhonchi, wheezes - Cardiovascular Cardiovascular exam: Present: RRR, +S1, +S2. Absent: diastolic murmur, gallop, rubs, systolic murmur - GI/Abdominal GI/Abdominal exam: Present: normal bowel sounds, soft, no peritoneal signs. Absent: distended, tenderness - Extremities Exam Extremities exam: Present: warm, radial pulses palpable and symmetrical. Absent : calf tenderness, cyanotic, pedal edema - Neurological Exam Neurological exam: Present: CN II-XII intact, oriented X3, no focal deficits. Absent: pronater drift, facial droop, speech deficit - Skin Skin exam: Present: dry, intact Internal Medicine: Result - Labs CBC & Chem 7: 01/14/17 03:39 01/14/17 03:39 Labs: Short CBC 01/14/17 Range/Units 03:39 WBC 6.2 (4.3-11.1) K/mcL Hgb 9.1 L (11.5-15.4) g/dL Hct 29.1 L (35.3-44.9) % Plt Count 215 (140-400) K/mcL Neutrophils # 3.5 (1.6-8.9) K/mcL BMP 01/14/17 03:39 Sodium 140 Potassium 3.8 Chloride 113 H Carbon Dioxide 17 L BUN 34 H D Creatinine 2.30 H Glucose 125 H Calcium 8.3 L Liver Function 01/14/17 Range/Units 03:39 Total Bilirubin 0.6 (0.2-1.2) mg/dL AST 12 (5-34) Units/L ALT 11 (0-55) Units/L Alkaline Phosphatase 92 (38-126) Units/L Albumin 2.6 L D (3.5-5.0) g/dL - VTE Documentation of Mechanical Device: Intermittent pneumatic compression device Consult Discharge Plan - Plan Referrals: Elton Gonzalez MD [Primary Care Provider] - 01/25/17 10:30 am
[2017-01-15 03:31] LABS: Basophils # 0.1 K/mcL (0.0-0.2); Basophils % 0.7 %; Eosinophils # 0.4 K/mcL (0.0-0.6); Eosinophils % 5.5 %; Hematocrit 29.7 % (35.3-44.9); Hemoglobin 9.2 g/dL (11.5-15.4); Immature Granulocytes % 0.6 % (0-4); Lymphocytes # 1.4 K/mcL (0.6-4.6); Lymphocytes % 20.1 %; Mean Corpuscular Hemoglobin 26.7 pg (28.0-33.3); Mean Corpuscular Volume 86.1 fL (83.0-100.0); Mean Platelet Volume 11.3 fL (9.4-12.4); Monocytes # 0.8 K/mcL (0.0-1.3); Monocytes % 11.2 %; Neutrophils # 4.4 K/mcL (1.6-8.9); Platelet Count 221 K/mcL (140-400); Red Blood Count 3.45 M/mcL (3.82-4.97); Segmented Neutrophils % 61.9 %
[2017-01-15 03:49] LABS: Albumin 2.4 g/dL (3.5-5.0); Albumin/Globulin Ratio 0.8 (1.1-2.2); Bilirubin,Total 0.5 mg/dL (0.2-1.2); Calcium 8.3 mg/dL (8.6-10.8); Globulin 2.9 g/dL (2.4-3.5); Potassium 4.1 mEq/L (3.5-4.5); Total Protein 5.3 g/dL (6.0-8.3)
[2017-01-15] MEDS ORDERED: Sucralfate 1 GM TABLET PO SCH (07:30)
[2017-01-15] MEDS: Insulin LISPRO 300 UNITS/3 ML VIAL SQ SCH ×2 (08:00→13:11)
[2017-01-15] MEDS: Diltiazem CD (24hr) 120 MG CAPSULE PO SCH (08:10)
[2017-01-15 11:17] VITALS: BP 170/62
--- NOTE | 2017-01-15 13:51 | Discharge Summary ---
Date of Encounter: 01/15/17 Time of Encounter: 13:46 - Discharge Diagnosis (1) Hypertensive urgency Priority: Primary Status: Acute (2) Epigastric pain Priority: Secondary Status: Acute (3) Bigeminal rhythm Priority: Secondary Status: Acute (4) Chest pain Priority: Secondary Status: Acute Qualifiers: Chest pain type: precordial pain Qualified Code(s): R07.2 - Precordial pain (5) Peptic ulcer disease Priority: Secondary Status: Acute (6) Chronic kidney disease, stage IV (severe) Priority: Secondary Status: Acute (7) Demand ischemia Priority: Secondary Status: Acute - Discharge Medications Prescriptions: Ferrous Gluconate 324 mg PO DAILY #30 tablet Lisinopril [Zestril] 10 mg PO BID #60 tablet Omeprazole [PriLOSEC] 40 mg PO BIDAC #60 capsule. Sucralfate [Carafate] 1 gm PO 0730,1630 #60 tablet Home Medications: Ascorbate Calcium [Vitamin C] 500 mg PO DAILY 01/11/17 [History] Diltiazem HCl [Diltiazem 24Hr Cd] 120 mg PO DAILY 01/11/17 [History] Furosemide [Lasix] 40 mg PO DAILY 01/11/17 [History] HYDROcodone/Acet 5/325 mg [[place] 5-325 mg] 0.5 - 1 tab PO BID PRN 01/11/17 [ History] Levothyroxine [Synthroid] 100 mcg PO 0630 01/11/17 [History] Simvastatin [Zocor] 40 mg PO HS 01/11/17 [History] Ferrous Gluconate 324 mg PO DAILY #30 tablet 01/15/17 [Rx] Lisinopril [Zestril] 10 mg PO BID #60 tablet 01/15/17 [Rx] Omeprazole [PriLOSEC] 40 mg PO BIDAC #60 capsule. 01/15/17 [Rx] Sucralfate [Carafate] 1 gm PO 0730,1630 #60 tablet 01/15/17 [Rx] Allergies/Adverse Reactions: 3 Allergy/AdvReac Type Severity Reaction Status Date / Time No Known Allergies Allergy Verified 01/11/17 12:53 Procedures/tests Complete & Pending: Procedures Performed prior 72 hours Category Date Time Status EV echocardiogram Routine Y 01/12/17 21:29 Completed Date of admission: 01/11/17 19:03 Primary care physician: Elton Gonzalez MD Consults: 01/11/17 19:21 Consult to Cardiology [CONS] Routine Comment: Consulting Provider: Cardiology Lois Reason for Consult: 86F with chest pain, epigastric pain. Trop 0.08 in setting of CKD. EKG shows bigeminy. Call Completed: Yes 01/11/17 22:39 Consult to Director International [CONS] Routine Reason for SW Consult: POSSIBLE DC NEEDS 01/12/17 15:26 Consult to Gastroenterology [CONS] Routine Consulting Provider: Gastroenterology Lois Reason for Consult: R/O PUD Time Notified: 15:27 Call Completed: No Discharging clinician: Kwaku Guerrero Anticipated date of discharge: 01/15/17 - Patient Status Disposition: Home, Self-Care Condition: Fair Overall status at discharge: patient is progressing back to baseline - Discharge Instructions Instructions: Sucralfate (By mouth), Peptic Ulcer (DC), Chronic Hypertension ( DC) Follow Up With: Danni Dyer MD [Partnered Physician] - (Web request placed 01/15/17) Elton Gonzalez MD [Primary Care Provider] - 01/25/17 10:30 am - Diet and Activity Activity: increase activity as tolerated Diet: advance to your usual diet Hospital course: Ms. Mas is a 86 year old female with a history of HTN, HLD, DM type II, CKD, who presents with severe abdominal pain, chest tightness, and diarrhea over the past three weeks. She reports symptoms increased over the past three days. She reports midsternal chest discomfort described as a burning sensation that occured with severe lower abdominal pain. C/o black tarry stools. She also c/o increasing SOB. Denies orthopnea, PND, or edema. SHe was found to have Elvevated troponin up to 0.23 and ISAIAH/CKD. HGB was stable. She was hypertensive with b/p up to 210/71 Patient was seen today. Discuss at [facility] and labs reviewed. #[address] abdomen on admission which showed duodenal ulcer. GI was consulted and EGD was performed which showed 2 duodenal ulcers and biopsies from ulcer and gastric mucosa were taken. No significant bleed. One blood vessel was called related. Patient is advised to follow with gastroenterology in 2-4 weeks in office.. However patient hemoglobin is stable. Switch IV PPI to oral Prilosec 40 twice a day. Start Carafate. #2 hypertensive urgency: Blood pressure is still elevated. He has been on calcium channel alfonso but still Pressures are elevated. Lopressor was DC'd because of bradycardia. echocardiogram shows normal LV systolic function with EF about 60% and no wall motion abnormality however [id number] diastolic dysfunction.. Patient is also on calcium channel alfonso and together beta alfonso and calcium channel alfonso are keeping her heart rate and blood pressure down. Cardiology thinks this is demand ischemia. #4 chronic kidney disease stage IV a borderline 5. Increase lisinopril 10 twice a day and follow creatinine as outpatient with family doctor. - Time Spent with Patient Total time spent providing and/or coordinating discharge services: Greater than 30 minutes - Constitutional Vitals: Temp Pulse Resp BP Pulse Ox 98.2 F 53 20 170/62 97 01/15/17 11:09 01/15/17 11:09 01/15/17 11:09 01/15/17 11:09 01/15/17 11:09 General appearance: Present: A&O X 3, pleasant, no acute distress, answers questions appropriately - Head Head exam: Present: atraumatic, normocephalic - Eye Eye exam: Present: PERRL, conjuntiva pink, sclera anicteric Pupils: Present: PERRL - Neck Neck exam general surgery: Present: supple, trachea midline. Absent: lymphadenopathy - Respiratory Respiratory exam: Present: CTAB. Absent: accessory muscle use, rales, rhonchi, wheezes - Cardiovascular Cardiovascular exam: Present: RRR, +S1, +S2. Absent: diastolic murmur, gallop, rubs, systolic murmur - GI/Abdominal GI/Abdominal exam: Present: normal bowel sounds, soft, no peritoneal signs. Absent: distended, tenderness - Extremities Exam Extremities exam: Present: warm, radial pulses palpable and symmetrical. Absent : calf tenderness, cyanotic, pedal edema - Neurological Exam Neurological exam: Present: CN II-XII intact, oriented X3, no focal deficits. Absent: pronater drift, facial droop, speech deficit - Skin Skin exam: Present: dry, intact - VTE Documentation of Mechanical Device: Intermittent pneumatic compression device
== END 2017-01-15 15:27 | disposition home or self-care (01) | DRG 304 ==
LOC: EMEROO 12:29 → 2ANU 12:29
PROVIDERS: ADMIT Family Medicine; ATTEND Internal Medicine
PROC: ENDOEBX (2017-01-14 14:00)

== ENCOUNTER 2017-02-08 04:02 | Inpatient (IN) ==
--- NOTE | 2017-02-08 04:10 | Emergency Department Note ---
Disposition Clinical Impression: Hypoglycemia, Pulmonary edema, Elevated troponin, ISAIAH (acute kidney injury) Hypothermia Qualifiers: Encounter type: initial encounter Qualified Code(s): T68.XXXA - Hypothermia, initial encounter Dyspnea Qualifiers: Dyspnea type: unspecified Qualified Code(s): R06.00 - Dyspnea, unspecified Altered mental status Qualifiers: Altered mental status type: unspecified Qualified Code(s): R41.82 - Altered mental status, unspecified Disposition: Admitted As Inpatient Condition: Good Referrals: Elton Gonzalez MD [Primary Care Provider] - Forms: ED Satisfaction Letter Time of Disposition: 05:34 Altered Mental Status HPI - General Chief Complaint: ED Altered Mental Status Stated Complaint: hypoglycemia Time Seen by Provider: 02/08/17 04:06 Source: patient, EMS Mode of arrival: EMS Limitations: no limitations Nursing Notes Reviewed: Yes Vital Signs Reviewed: Yes - History of Present Illness HPI Narrative: Patient is an 86-year-old female with past medical history of hypertension, hyperlipidemia, type 2 diabetes, hypothyroid, and chronic kidney disease. She presents today due to a few different complaints. First, she states that she felt lightheaded and weak, she was unable to get up off the couch. She called EMS. When they arrived, they found that the blood sugar was in the 50s. They gave an amp of D50 and her blood sugar on presentation was in the 70s. She also says that she felt short of breath, denies any chest pain. She also says that she feels very cold. The patient says that she has heating in her house, was not outside recently. Temp was 91 on presentation. Otherwise, denies any nausea, vomiting, fevers, diarrhea, abdominal pain. - Related Data Home Medications Medication Instructions Recorded Confirmed Ascorbate Calcium [Vitamin C] 500 mg PO DAILY 01/11/17 02/08/17 Diltiazem HCl [Diltiazem 24Hr Cd] 120 mg PO DAILY 01/11/17 02/08/17 Furosemide [Lasix] 40 mg PO DAILY 01/11/17 02/08/17 HYDROcodone/Acet 5/325 mg [[place] 0.5 - 1 tab PO BID PRN 01/11/17 01/11/17 5-325 mg] Levothyroxine [Synthroid] 100 mcg PO 0630 01/11/17 02/08/17 Simvastatin [Zocor] 40 mg PO HS 01/11/17 02/08/17 Amoxicillin [Amoxil] 1,000 mg PO BID 02/08/17 02/08/17 Clarithromycin [Biaxin] 500 mg PO BID 02/08/17 02/08/17 Glimepiride [Amaryl] 2 mg PO BID 02/08/17 02/08/17 Previous Rx's Medication Instructions Recorded Ferrous Gluconate 324 mg PO DAILY #30 tablet 01/15/17 Lisinopril [Zestril] 10 mg PO BID #60 tablet 01/15/17 Omeprazole [PriLOSEC] 40 mg PO BIDAC #60 capsule. 01/15/17 Sucralfate [Carafate] 1 gm PO 0730,1630 #60 tablet 01/15/17 Allergies Allergy/AdvReac Type Severity Reaction Status Date / Time No Known Allergies Allergy Verified 01/11/17 12:53 All systems ED: reviewed and negative except as stated. Constitutional: Reports: chills. Denies: fever Cardiovascular: Denies: chest pain Respiratory: Reports: dyspnea. Denies: cough Gastrointestinal: Denies: abdominal pain, nausea, vomiting, diarrhea Neurological: Denies: weakness, numbness, paresthesias Past Medical History - Past Medical History Attestation: Yes The following information was validated with the patient. Source: patient, old records reviewed Medical history: Reports: diabetes, hyperlipidemia, hypertension, thyroid disease Surgical history: Reports: cholecystectomy Psychiatric history: Reports: no psych history - Social History Smoking Status: Former smoker Smokeless Tobacco Status: No Alcohol use: Reports: none Drug use: Reports: none Physical Exam - General Limitations: no limitations General appearance: alert, in no apparent distress - Head Head exam: atraumatic, normocephalic, normal inspection - Eye Eye exam: Present: normal appearance, PERRL, EOMI - ENT ENT exam: normal exam, normal oropharynx, mucous membranes moist - Neck Neck exam: Present: normal inspection, full ROM, trachea midline - Chest Chest inspection: Present: normal inspection, symmetric chest wall rise - Respiratory Respiratory exam: Present: normal lung sounds bilaterally - Cardiovascular Cardiovascular exam: Present: regular rate, normal rhythm, normal heart sounds - Abdominal Exam Abdominal exam: Present: soft, Non-Tender. Absent: tenderness, distention, guarding, rebound, rigidity - Extremities Exam Extremities exam: Present: normal inspection, full ROM. Absent: tenderness, pedal edema - Neurological Exam Neurological exam: Present: alert, oriented X3 - Psychiatric Psychiatric exam: Present: normal affect, normal mood - Skin Skin exam: Present: warm, dry, intact, normal color Course Course Narrative: Patient was hydrated hypertensive, hypothermic with a temp of 91. The rest of the vital signs within normal limits. Physical exam shows a fib, regular rate, lungs clear to auscultation. Abdomen soft and benign. Due to shortness of breath, will obtain EKG, CXR, trop. Will give aspirin 325mg. WIll give warm saline, bear hugger to help with hypothermia. 05:16 labs show ISAIAH, elevated troponin of 0.16. No current chest pain. This is actually trending down from previous troponin levels. EKG shows no acute ST elevation or depression. Chest x-ray shows new diffuse bilateral interstitial airspace opacities that is likely pulmonary edema. Patient was reassessed. She is currently 96% on room air. She is still having mildly labored breathing. She is declining BiPAP at this time. We will give the patient IV Lasix 40 mg. Will admit to the hospitalist for further care. Patient is somewhat confused on exam, however, she states is present states that she is at baseline for herself. Chest X-Ray 02/08/17 04:07 IMPRESSION: New diffuse bilateral interstitial airspace opacities, likely related to pulmonary edema with small bilateral pleural effusions. Pneumonia not excluded. D/ / Catrachita Flores MD / Catrachita Flores MD Interpreting Provider: Catrachita Flores MD Vital Signs Temperature 97.6 F 02/08/17 04:03 Pulse Rate 72 02/08/17 04:03 Respiratory Rate 20 02/08/17 04:03 Blood Pressure 192/75 02/08/17 04:03 O2 Sat by Pulse Oximetry 96 02/08/17 04:03 Temperature 97.6 F 02/08/17 04:03 Pulse Rate 69 02/08/17 05:14 Respiratory Rate 24 02/08/17 05:14 Blood Pressure 185/85 02/08/17 05:14 O2 Sat by Pulse Oximetry 96 02/08/17 05:14 Oxygen Delivery Oxygen Delivery Room Air Altered Mental Status - MDM Narrative Medical decision making narrative: labs show ISAIAH, elevated troponin of 0.16. No current chest pain. This is actually trending down from previous troponin levels. EKG shows no acute ST elevation or depression. Chest x-ray shows new diffuse bilateral interstitial airspace opacities that is likely pulmonary edema. Patient was reassessed. She is currently 96% on room air. She is still having mildly labored breathing. She is declining BiPAP at this time. We will give the patient IV Lasix 40 mg. Will admit to the hospitalist for further care. Patient is somewhat confused on exam, however, she states is present states that she is at baseline for herself. - Medical Records Medical records reviewed: Yes I reviewed the patient's medical records. - Lab Data Lab results reviewed: Yes I reviewed the patient's lab results. Result diagrams: 02/08/17 04:12 02/08/17 04:12 Lab Results 02/08/17 02/08/17 02/08/17 Range/Units 04:12 04:12 04:12 WBC 9.8 (4.3-11.1) K/mcL RBC 3.91 (3.82-4.97) M/mcL Hgb 10.9 L (11.5-15.4) g/dL Hct 33.6 L (35.3-44.9) % MCV 85.9 (83.0-100.0) fL MCH 27.9 L (28.0-33.3) pg MCHC 32.4 (31.6-35.5) g/dL RDW 14.8 H (11.5-14.5) % Plt Count 384 (140-400) K/mcL MPV 10.2 (9.4-12.4) fL Immature Gran % 0.9 (0-4) % Seg Neutrophils % 80.2 % Lymphocytes % 11.3 % Monocytes % 7.0 % Eosinophils % 0.3 % Basophils % 0.3 % Neutrophils # 7.9 (1.6-8.9) K/mcL Lymphocytes # 1.1 (0.6-4.6) K/mcL Monocytes # 0.7 (0.0-1.3) K/mcL Eosinophils # 0.0 (0.0-0.6) K/mcL Basophils # 0.0 (0.0-0.2) K/mcL PT 11.5 (9.4-12.1) Seconds INR 1.1 APTT 36.2 H (26.0-36.0) Seconds Sodium 144 (136-145) mEq/L Potassium 3.7 (3.5-4.5) mEq/L Chloride 110 H (98-109) mEq/L Carbon Dioxide 21 (19-29) mEq/L BUN 28 H (7-20) mg/dL Creatinine 2.72 H (0.57-1.11) mg/dL Est GFR ( Amer) 20 L (> 60) Est GFR (Non-Af Amer) 17 L (> 60) BUN/Creatinine Ratio 10 (6-26) Glucose 73 (70-99) mg/dL Calculated Osmolality 302 H (280-300) Calcium 9.5 (8.6-10.8) mg/dL Total Bilirubin 0.5 (0.2-1.2) mg/dL Direct Bilirubin 0.3 (0.0-0.5) mg/dL Indirect Bilirubin 0.2 (0.0-1.2) mg/dL AST 18 (5-34) Units/L ALT 8 (0-55) Units/L Alkaline Phosphatase 114 (38-126) Units/L Troponin I (0-0.03) ng/mL Serum Total Protein 7.9 (6.0-8.3) g/dL Albumin 3.3 L (3.5-5.0) g/dL Globulin 4.6 H (2.4-3.5) g/dL Albumin/Globulin Ratio 0.7 L (1.1-2.2) TSH 1.359 (0.350-4.840) mcIU/mL Urine Color (Yellow) Urine Clarity (Clear) Urine pH (5.0-8.0) pH Units Ur Specific [place] (1.010-1.025) Urine Protein (Neg-Trace) mg/dL Urine Glucose (UA) (Normal) mg/dL Urine Ketones (Negative) mg/dL Urine Blood (Negative) Urine Nitrite (Negative) Urine Bilirubin (Negative) Urine Urobilinogen (Normal) mg/dL Ur Leukocyte Esterase (Negative) Urine Microscopic RBC (0-3) per hpf Urine Microscopic WBC (0-3) per hpf Ur Squamous Epith Cells (None-Few) per lpf Amorphous Sediment (Few) Urine Bacteria (None-Few) per hpf Hyaline Casts Ur Culture Indicated? (NO) 02/08/17 02/08/17 Range/Units 04:12 04:19 WBC (4.3-11.1) K/mcL RBC (3.82-4.97) M/mcL Hgb (11.5-15.4) g/dL Hct (35.3-44.9) % MCV (83.0-100.0) fL MCH (28.0-33.3) pg MCHC (31.6-35.5) g/dL RDW (11.5-14.5) % Plt Count (140-400) K/mcL MPV (9.4-12.4) fL Immature Gran % (0-4) % Seg Neutrophils % % Lymphocytes % % Monocytes % % Eosinophils % % Basophils % % Neutrophils # (1.6-8.9) K/mcL Lymphocytes # (0.6-4.6) K/mcL Monocytes # (0.0-1.3) K/mcL Eosinophils # (0.0-0.6) K/mcL Basophils # (0.0-0.2) K/mcL PT (9.4-12.1) Seconds INR APTT (26.0-36.0) Seconds Sodium (136-145) mEq/L Potassium (3.5-4.5) mEq/L Chloride (98-109) mEq/L Carbon Dioxide (19-29) mEq/L BUN (7-20) mg/dL Creatinine (0.57-1.11) mg/dL Est GFR ( Amer) (> 60) Est GFR (Non-Af Amer) (> 60) BUN/Creatinine Ratio (6-26) Glucose (70-99) mg/dL Calculated Osmolality (280-300) Calcium (8.6-10.8) mg/dL Total Bilirubin (0.2-1.2) mg/dL Direct Bilirubin (0.0-0.5) mg/dL Indirect Bilirubin (0.0-1.2) mg/dL AST (5-34) Units/L ALT (0-55) Units/L Alkaline Phosphatase (38-126) Units/L Troponin I 0.16 H* (0-0.03) ng/mL Serum Total Protein (6.0-8.3) g/dL Albumin (3.5-5.0) g/dL Globulin (2.4-3.5) g/dL Albumin/Globulin Ratio (1.1-2.2) TSH (0.350-4.840) mcIU/mL Urine Color Yellow (Yellow) Urine Clarity Cloudy A (Clear) Urine pH 5.5 (5.0-8.0) pH Units Ur Specific [place] 1.021 (1.010-1.025) Urine Protein >=300 H (Neg-Trace) mg/dL Urine Glucose (UA) Normal (Normal) mg/dL Urine Ketones Negative (Negative) mg/dL Urine Blood Negative (Negative) Urine Nitrite Negative (Negative) Urine Bilirubin Negative (Negative) Urine Urobilinogen Normal (Normal) mg/dL Ur Leukocyte Esterase Negative (Negative) Urine Microscopic RBC 0-3 (0-3) per hpf Urine Microscopic WBC 5-15 H (0-3) per hpf Ur Squamous Epith Cells Many H (None-Few) per lpf Amorphous Sediment Few (Few) Urine Bacteria Few (None-Few) per hpf Hyaline Casts Test Not Performed Ur Culture Indicated? NO (NO) - Radiology Data Radiology results reviewed: Yes I reviewed the patient's radiology results. - EKG Data EKG attestation: Yes I reviewed and interpreted this EKG. EKG results narrative: 02/08/2017 at 04:10. A. fib. No acute ST elevation or depression. Rate 76. QRS 116. QTC 456. Normal axis. TPA Checklist - LKW: 3-4.5 hrs Add. Warnings/Precautions Patient/family understanding: The patient/family members have been counseled and understood the risk, benefit , and alternatives of treatment. S.B.A.R. - Vernon.[email or web address].ARavinder Situation: Demographics, MOA Background: Presenting Complaint, Relevant PMH, Meds, & Allergies Assessment: Vital Signs, Course and respsone to treatment, Exam Concerns, Patient/Family Expectation, Pertinant Lab Results Recommendation: Barrier(s) to disposition, Recommendation based on pending studies, treatments, or consults S.B.Raisa Report Given to: Dr. David Tobar Repor Time: 05:34
[2017-02-08 04:21] LABS: Basophils % 0.3 %; Eosinophils % 0.3 %; Hematocrit 33.6 % (35.3-44.9); Hemoglobin 10.9 g/dL (11.5-15.4); Immature Granulocytes % 0.9 % (0-4); Lymphocytes # 1.1 K/mcL (0.6-4.6); Lymphocytes % 11.3 %; Mean Corpuscular HGB Conc 32.4 g/dL (31.6-35.5); Mean Corpuscular Hemoglobin 27.9 pg (28.0-33.3); Mean Corpuscular Volume 85.9 fL (83.0-100.0); Mean Platelet Volume 10.2 fL (9.4-12.4); Monocytes # 0.7 K/mcL (0.0-1.3); Neutrophils # 7.9 K/mcL (1.6-8.9); Platelet Count 384 K/mcL (140-400); Red Blood Count 3.91 M/mcL (3.82-4.97); Red Cell Distribution Width 14.8 % (11.5-14.5); Segmented Neutrophils % 80.2 %
[2017-02-08 04:26] LABS: INR 1.1; Prothrombin Time 11.5 Seconds (9.4-12.1)
[2017-02-08 04:28] LABS: Bilirubin,Urine Negative (Negative); Blood,Urine Negative (Negative); Clarity,Urine Cloudy (Clear); Color,Urine Yellow (Yellow); Glucose,Urine (UA) Normal (Normal); Ketones,Urine Negative (Negative); Leukocyte Esterase,Urine Negative (Negative); Nitrite,Urine Negative (Negative); PH,Urine 5.5 pH Units (5.0-8.0); Protein,Urine >=300 mg/dL (Neg-Trace); Specific Gravity,Urine 1.021 (1.010-1.025); Urobilinogen,Urine Normal (Normal)
[2017-02-08 04:29] LABS: Activated Partial Thrombo Time 36.2 Seconds (26.0-36.0)
--- NOTE | 2017-02-08 04:29 | Emergency Department Note ---
START Narrative - START START: I examined this patient and my medical decision-making was reviewed with the emergency medicine resident. I agree with the documented findings, disposition and treatment plan as described except to the extent set forth below. Patient seen with emergency medicine resident Dr. Augusto Tracy, Please see a copy of his note for details of the H&P, ED evaluation, management and disposition. I have independently evaluated the patient and confirmed appropriate portions of the history and physical exam. Briefly: A 86-year-old female by EMS history of CK D stage II hypertension diabetes presents with hypo-glycemia hypertension and feeling cold. Cor temperature 90.1 degrees. She is getting IV warm saline and bear hugger for warming. Patient's Accu-Chek was 50 at home was given glucose in the field and it was rechecked at [facility] and 75. Patient will be undergoing workup for hypoglycemia. Since she lives by herself and she is on oral agents admission is anticipated. Provided 30 minutes of critical care service with this patient. Disposition pending
[2017-02-08 04:30] LABS: RBC,Urine 0-3 per hpf (0-3); Squamous Epithelial Cell,Urine Many per lpf (None-Few)
[2017-02-08 04:38] LABS: Albumin 3.3 g/dL (3.5-5.0); Albumin/Globulin Ratio 0.7 (1.1-2.2); Bilirubin,Direct 0.3 mg/dL (0.0-0.5); Bilirubin,Indirect 0.2 mg/dL (0.0-1.2); Bilirubin,Total 0.5 mg/dL (0.2-1.2); Calcium 9.5 mg/dL (8.6-10.8); Globulin 4.6 g/dL (2.4-3.5); Potassium 3.7 mEq/L (3.5-4.5); Total Protein 7.9 g/dL (6.0-8.3)
[2017-02-08 04:39] LABS: Amorphous Sediment,Urine Few (Few); Bacteria,Urine Few per hpf (None-Few)
[2017-02-08] MEDS ORDERED: Aspirin 325 MG TABLET PO ONE (04:53)
[2017-02-08] MEDS ORDERED: Furosemide 40 MG/4 ML VIAL IVP ONE (04:54)
[2017-02-08 04:55] LABS: Thyroid Stimulating Hormone 1.359 mcIU/mL (0.350-4.840)
[2017-02-08 06:02] LABS: VBG HCO3 23 mEq/L (21-27); VBG PCO2 51 mmHg (41-51); VBG PH 7.26 pH Units (7.32-7.42); VBG PO2 31 mmHg (25-50)
--- NOTE | 2017-02-08 08:18 | Internal Med History&Physical ---
Date of Encounter: 02/08/17 Time of Encounter: 08:13 Assessment and Plan (1) Type 2 diabetes mellitus with hypoglycemia Current visit: Yes Status: Acute Likely caused by Amaryl in the context of worsening chronic renal insufficiency and mild acute renal failure. I will stop all oral antidiabetic medication. Check blood glucose every 2 hours for the next 6 hours and then if glucose remains within normal limits we will check 4 times daily. We will start low-dose insulin sliding scale, no long-acting insulin coverage. Qualifiers: Diabetes mellitus complication detail: without coma Diabetes mellitus skilled nursing insulin use: without terminologist use Qualified Code(s): E11.649 - Type 2 diabetes mellitus with hypoglycemia without coma (2) Cellulitis of right foot Current visit: Yes Status: Acute Patient reports dropping a heavy object onto her right foot and noticing more swelling and redness on the top of her foot. There is mild erythema warmth and soft tissue edema on the dorsum of the right foot consistent with cellulitis. We will check blood culture. Start empiric treatment with ceftriaxone. Even though the patient needs sirs criteria sepsis was ruled out as the patient improved without IV fluids for IV antibiotics and currently does not meet SIRS criteria. (3) Elevated troponin Current visit: Yes Status: Acute Likely related to uncontrolled hypertension. Troponin was trending down from was 0.21. We will trend troponin. Monitor on telemetry. We will provide blood pressure control with oral and IV antihypertensive medication. (4) Acute on chronic kidney failure Current visit: No Status: Acute Creatinine is slightly worse than her baseline of 2.5 in December 2016. She Avoid nephrotoxins. Monitor kidney function. Adjust medication dosing according to GFR. I will hold lisinopril for now due to worsening renal failure. Qualifiers: Acute renal failure type: unspecified Chronic kidney disease stage: stage 3 (moderate) Qualified Code(s): N17.9 - Acute kidney failure, unspecified; N18.3 - Chronic kidney disease, stage 3 (moderate) (5) Hypertensive urgency Current visit: No Status: Acute Initial blood pressure on presentation was 192/75 with sign of end organ damage specifically chest x-ray findings of pulmonary edema. Continue with oral diltiazem. Hold lisinopril due to worsening renal function. Add oral hydralazine. (6) Peptic ulcer disease Current visit: No Status: Acute Continue Carafate, PPI and H. pylori therapy. (7) Acute on chronic diastolic heart failure Current visit: Yes Status: Acute Recent echocardiogram shows normal LV ejection fraction with LVH and diastolic dysfunction. Chest x-ray today shows pulmonary edema. Likely has exacerbation secondary to uncontrolled hypertension. Continue with IV Lasix. Blood pressure control as above. (8) DVT prophylaxis Current visit: No Status: Acute She has a recent GI bleed and therefore anticoagulation is contraindicated. We will use SCDs. Internal Medicine - H&P: HPI Chief complaint: Generalized weakness Admitted From: Emergency Dept Plans for Post Hospital Care: Home History of present illness: Ms. Mas is a 86 year old female with past medical history significant for hypertension, hyperlipidemia, hypothyroidism, type 2 diabetes and chronic kidney disease who presented to the hospital for generalized weakness. Apparently this morning she was sitting in her ottoman and try to get up to get a drink of water and suddenly she felt very weak, could not stand up and had some dizziness, denies chest pain, loss of consciousness. Her symptoms lasted for 15 minutes and family called EMS. When EMS arrived her blood glucose was 15 and she was given IV dextrose. Upon arrival to the emergency department blood glucose was 70 and her symptoms were improving. In the emergency department chest x-ray showed pulmonary edema and she was given Lasix and referred for admission and further care. She was hypothermic with an initial temperature of 91. She was given warm saline and Thea hugger. Her temperature came up to the normal range. Review of systems: Positive as above and additionally positive for chronic lower extremity swelling, negative for bleeding, bruising, open wounds, nausea vomiting and diarrhea. Family history: Patient's sister suffered with diabetes. Social history: Remote history of smoking. No reported alcohol or drug use. She lives at home with family. Past Med Surg Social Fam HX - Past Medical History Medical history: diabetes, hyperlipidemia, hypertension, thyroid disease Psychiatric history: no psych history - Past Surgical History Surgical History: cholecystectomy - Social History Smoking Status: Former smoker Smokeless Tobacco Status: No Alcohol use: none Drug use: none - Family History Sister Living Status: Father Living Status: Brother Living Status: Internal Medicine - H&P: Meds Ascorbate Calcium [Vitamin C] 500 mg PO DAILY 01/11/17 [History] Diltiazem HCl [Diltiazem 24Hr Cd] 120 mg PO DAILY 01/11/17 [History] Furosemide [Lasix] 40 mg PO DAILY 01/11/17 [History] HYDROcodone/Acet 5/325 mg [[place] 5-325 mg] 0.5 - 1 tab PO BID PRN 01/11/17 [ History] Levothyroxine [Synthroid] 100 mcg PO 0630 01/11/17 [History] Simvastatin [Zocor] 40 mg PO HS 01/11/17 [History] Ferrous Gluconate 324 mg PO DAILY #30 tablet 01/15/17 [Rx] Lisinopril [Zestril] 10 mg PO BID #60 tablet 01/15/17 [Rx] Omeprazole [PriLOSEC] 40 mg PO BIDAC #60 capsule. 01/15/17 [Rx] Sucralfate [Carafate] 1 gm PO 0730,1630 #60 tablet 01/15/17 [Rx] Glimepiride [Amaryl] 2 mg PO BID 02/08/17 [History] 3 Allergy/AdvReac Type Severity Reaction Status Date / Time No Known Allergies Allergy Verified 01/11/17 12:53 All Systems PM: A 10-system review of systems was performed and is negative for pertinent findings except as documented above in the HPI. - Constitutional Vitals: Temp Pulse Resp BP Pulse Ox 98.3 F 78 18 156/79 95 02/08/17 07:17 02/08/17 08:01 02/08/17 07:16 02/08/17 07:16 02/08/17 07:16 General appearance: Present: A&O X 3, no acute distress - Eye Eye exam: Present: PERRL, conjuntiva pink, sclera anicteric Pupils: Present: PERRL - Respiratory Respiratory exam: Present: CTAB. Absent: accessory muscle use, rales, rhonchi, wheezes - Cardiovascular Cardiovascular exam: Present: RRR, +S1, +S2. Absent: diastolic murmur, gallop, rubs, systolic murmur - GI/Abdominal GI/Abdominal exam: Present: normal bowel sounds, soft, no peritoneal signs. Absent: distended, tenderness - Extremities Exam Extremities exam: Present: pedal edema, warm, radial pulses palpable and symmetrical. Absent: calf tenderness, cyanotic - Neurological Exam Neurological exam: Present: CN II-XII intact, oriented X3, no focal deficits. Absent: pronater drift, facial droop, speech deficit - Skin Skin exam: Present: dry, erythema, intact Additional comments: There is erythema worms and pitting edema of the dorsum of the right foot consistent with cellulitis. There is toenail fungus. Skin is dry and scaly. Internal Med - H&P Results - Labs CBC & Chem 7: 02/08/17 04:12 02/08/17 04:12 - ABG Interpretation ABG results: 02/08/17 05:57 VBG pH 7.26 L VBG pCO2 51 VBG pO2 31 VBG HCO3 23 - EKG Data -: EKG Interpreted by Myself EKG shows normal: sinus rhythm (NSR with APC and VPC and nonspecific ST changes. ) - Impressions Per chart review: Echocardiogram performed on 01/12/2017 shows ejection fraction 60-65%, mild left ventricular hypertrophy and mild diastolic dysfunction of the left ventricle.
[2017-02-08] MEDS ORDERED: Acetaminophen 325 MG TABLET PO PRN (09:34)
[2017-02-08] MEDS ORDERED: Naloxone 0.4 MG/ML INJ IVP PRN (09:34)
[2017-02-08] MEDS ORDERED: Dextrose Gel 15 GM PO PRN ×2 (09:38)
[2017-02-08] MEDS ORDERED: *HR* Dextrose 50 % in Water (Syg) 50 ML SYRINGE IVP PRN (09:38)
[2017-02-08] MEDS ORDERED: D5% in Water 1,000 ML IVC PRN (09:38)
[2017-02-08] MEDS: hydrALAZINE 25 MG TABLET PO SCH ×2 (10:12→15:25)
[2017-02-08] MEDS: Diltiazem CD (24hr) 120 MG CAPSULE PO SCH (10:12)
[2017-02-08] MEDS: Insulin LISPRO 300 UNITS/3 ML VIAL SQ SCH ×2 (12:04→15:51)
--- NOTE | 2017-02-08 13:57 | Electrocardiograph Report ---
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
[2017-02-08] MEDS: Sucralfate 1 GM TABLET PO SCH (15:25)
--- NOTE | 2017-02-08 17:39 | Event Note ---
Date of Encounter: 02/08/17 Time of Encounter: 17:37 Troponin is trending up from 0.16-0.30, likely secondary to hypertensive urgency. Patient has been chest pain-free. We will treat her medically. She is not a candidate for anticoagulation due to recent GI bleed. She was recently evaluated by cardiology who found her to not be a good candidate for further ischemic workup for the same reason. Echocardiogram was obtained during previous visit. Will continue blood pressure control. Continue with statin.
[2017-02-08] MEDS: *HR* HYDROcodone/Acet 5/325 mg TABLET PO PRN (21:08)
[2017-02-09] MEDS: hydrALAZINE 25 MG TABLET PO SCH ×4 (01:00→23:44)
[2017-02-09 03:23] LABS: Calcium 8.5 mg/dL (8.6-10.8); Potassium 3.9 mEq/L (3.5-4.5)
[2017-02-09] MEDS: Insulin LISPRO 300 UNITS/3 ML VIAL SQ SCH ×3 (07:12→16:58)
[2017-02-09 07:25] LABS: Basophils # 0.1 K/mcL (0.0-0.2); Basophils % 0.4 %; Eosinophils # 0.2 K/mcL (0.0-0.6); Eosinophils % 1.2 %; Hematocrit 27.2 % (35.3-44.9); Hemoglobin 8.7 g/dL (11.5-15.4); Immature Granulocytes % 0.6 % (0-4); Mean Corpuscular Hemoglobin 27.3 pg (28.0-33.3); Mean Corpuscular Volume 85.3 fL (83.0-100.0); Mean Platelet Volume 10.7 fL (9.4-12.4); Monocytes # 1.3 K/mcL (0.0-1.3); Monocytes % 10.3 %; Neutrophils # 9.9 K/mcL (1.6-8.9); Platelet Count 327 K/mcL (140-400); Red Blood Count 3.19 M/mcL (3.82-4.97); Red Cell Distribution Width 14.9 % (11.5-14.5); Segmented Neutrophils % 79.5 %
[2017-02-09] MEDS: Furosemide 40 MG/4 ML VIAL IVP SCH (07:45)
[2017-02-09] MEDS: Sucralfate 1 GM TABLET PO SCH ×2 (07:45→16:59)
[2017-02-09] MEDS: Diltiazem CD (24hr) 120 MG CAPSULE PO SCH (07:46)
[2017-02-09] MEDS: *HR* HYDROcodone/Acet 5/325 mg TABLET PO PRN (08:09)
--- NOTE | 2017-02-09 17:49 | Internal Med Progress Note ---
Date of Encounter: 02/09/17 Time of Encounter: 11:10 - Assessment and plan (1) Acute on chronic diastolic heart failure Current Visit: Yes Status: Acute Assessment and plan: Acute on chronic diastolic CHF with LVEF 60-65% Continue Lasix Chest x-ray - new diffuse bilateral interstitial airspace opacities, likely edema Strict I's and O's, daily weight, fluid restriction Cardiac telemetry, labs in a.m., monitor closely (2) Elevated troponin Current Visit: Yes Status: Acute Assessment and plan: Elevated troponin likely due to initial uncontrolled hypertension - no chest pain Patient had recent GI bleed so she is not a candidate for anticoagulation Patient was recently evaluated by cardiology and they recommended no further ischemic workup Continue statin (3) Cellulitis of right foot Current Visit: Yes Status: Acute Assessment and plan: Acute right foot cellulitis - swelling and erythema seems to have improved Continue empiric IV Rocephin (4) Acute on chronic kidney failure Current Visit: No Status: Acute Assessment and plan: Acute kidney injury on chronic kidney disease likely due to CHF Monitor closely, labs in a.m. Qualifiers: Acute renal failure type: unspecified Chronic kidney disease stage: stage 3 (moderate) Qualified Code(s): N17.9 - Acute kidney failure, unspecified; N18.3 - Chronic kidney disease, stage 3 (moderate) (5) Hypertension Current Visit: Yes Status: Chronic Assessment and plan: Essential hypertension, controlled, monitor Continue Cardizem, hydralazine Qualifiers: Hypertension type: essential hypertension Qualified Code(s): I10 - Essential (primary) hypertension (6) Type 2 diabetes mellitus with hypoglycemia Current Visit: Yes Status: Acute Assessment and plan: Type 2 diabetes mellitus, [id number]-rvvmbzlsk, hyperglycemia Continue insulin sliding scale, glucose checks Qualifiers: Diabetes mellitus complication detail: without coma 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 Patient is awake and alert. Not in any distress. Denies chest pain or shortness of breath. No fever. Hemodynamic assessment. States she feels better. Denies any dizziness or vomiting. No other acute events or complaints. Admitted for generalized weakness due to hypoglycemia and uncontrolled hypertension and right foot cellulitis. - Constitutional Vitals: Temp Pulse Resp BP Pulse Ox 98.9 F 58 22 151/56 95 02/09/17 15:10 02/09/17 15:10 02/09/17 15:10 02/09/17 15:10 02/09/17 15:10 General appearance: Present: A&O X 3, pleasant, no acute distress, obese, answers questions appropriately - Head Head exam: Present: atraumatic - Eye Eye exam: Present: EOMI - ENT ENT exam: Present: mucous membranes moist - Respiratory Respiratory exam: Present: CTAB. Absent: rales, rhonchi, wheezes, tachypnea - Cardiovascular Cardiovascular exam: Present: RRR, +S1, +S2 - GI/Abdominal GI/Abdominal exam: Present: soft. Absent: distended, firm, guarding, tenderness - Extremities Exam Extremities exam: Present: radial pulses palpable and symmetrical. Absent: calf tenderness, cyanotic, pedal edema - Neurological Exam Neurological exam: Present: alert, oriented X3, no focal deficits. Absent: facial droop, speech deficit Internal Medicine: Result - Labs CBC & Chem 7: 02/09/17 06:51 02/09/17 02:42 Labs: Short CBC 02/09/17 Range/Units 06:51 WBC 12.4 H (4.3-11.1) K/mcL Hgb 8.7 L D (11.5-15.4) g/dL Hct 27.2 L (35.3-44.9) % Plt Count 327 (140-400) K/mcL Neutrophils # 9.9 H (1.6-8.9) K/mcL BMP 02/09/17 02:42 Sodium 144 Potassium 3.9 Chloride 112 H Carbon Dioxide 21 BUN 30 H Creatinine 3.10 H Glucose 43 L Calcium 8.5 L - ABG Interpretation ABG results: PT/INR, D-dimer PT 11.5 Seconds (9.4-12.1) 02/08/17 04:12 - VTE Documentation of Mechanical Device: Intermittent pneumatic compression device Consult Discharge Plan - Plan Referrals: KAILEE GUPTA [Other] - 02/15/17 10:00 am (HIS OFFICE IS LOCATED NEXT TO [facility])
[2017-02-09] MEDS: *HR* Heparin 5,000 UNIT/ML VIAL SQ SCH (18:31)
[2017-02-10 04:54] LABS: Basophils # 0.1 K/mcL (0.0-0.2); Basophils % 0.6 %; Eosinophils # 0.3 K/mcL (0.0-0.6); Eosinophils % 3.2 %; Hematocrit 26.2 % (35.3-44.9); Hemoglobin 8.3 g/dL (11.5-15.4); Immature Granulocytes % 0.6 % (0-4); Lymphocytes # 1.5 K/mcL (0.6-4.6); Lymphocytes % 15.9 %; Mean Corpuscular HGB Conc 31.7 g/dL (31.6-35.5); Mean Corpuscular Hemoglobin 27.3 pg (28.0-33.3); Mean Corpuscular Volume 86.2 fL (83.0-100.0); Mean Platelet Volume 10.5 fL (9.4-12.4); Monocytes # 1.1 K/mcL (0.0-1.3); Monocytes % 11.8 %; Neutrophils # 6.4 K/mcL (1.6-8.9); Platelet Count 292 K/mcL (140-400); Red Blood Count 3.04 M/mcL (3.82-4.97); Red Cell Distribution Width 15.1 % (11.5-14.5); Segmented Neutrophils % 67.9 %
[2017-02-10 05:08] LABS: Calcium 8.3 mg/dL (8.6-10.8); Potassium 4.3 mEq/L (3.5-4.5)
[2017-02-10] MEDS: *HR* Heparin 5,000 UNIT/ML VIAL SQ SCH ×2 (06:28→16:45)
[2017-02-10] MEDS: Diltiazem CD (24hr) 120 MG CAPSULE PO SCH (08:05)
[2017-02-10] MEDS: Sucralfate 1 GM TABLET PO SCH ×2 (08:05→16:45)
[2017-02-10] MEDS: hydrALAZINE 25 MG TABLET PO SCH ×2 (08:05→16:45)
[2017-02-10] MEDS: Furosemide 40 MG/4 ML VIAL IVP SCH (08:06)
[2017-02-10] MEDS: Insulin LISPRO 300 UNITS/3 ML VIAL SQ SCH ×3 (08:06→16:46)
[2017-02-10 10:44] LABS: Hemoglobin A1C 5.8 %
[2017-02-10] MEDS: Ipratropium/Albuterol Neb 3 ML IH SCH ×3 (11:42→22:17)
--- NOTE | 2017-02-10 15:15 | Internal Med Progress Note ---
Date of Encounter: 02/10/17 Time of Encounter: 09:45 - Assessment and plan (1) Acute on chronic diastolic heart failure Current Visit: Yes Status: Acute Assessment and plan: Acute on chronic diastolic CHF with LVEF 60-65% - now improved Stop Lasix due to acute kidney injury Chest x-ray - new diffuse bilateral interstitial airspace opacities, likely edema Strict I's and O's, daily weight, fluid restriction Cardiac telemetry, labs in a.m., monitor closely (2) Elevated troponin Current Visit: Yes Status: Acute Assessment and plan: Elevated troponin likely due to initial uncontrolled hypertension - no chest pain Patient had recent GI bleed so she is not a candidate for anticoagulation Patient was recently evaluated by cardiology and they recommended no further ischemic workup Continue Simvastatin (3) Cellulitis of right foot Current Visit: Yes Status: Acute Assessment and plan: Acute right foot cellulitis - swelling and erythema has improved Continue empiric IV Rocephin (4) Acute on chronic kidney failure Current Visit: No Status: Acute Assessment and plan: Acute kidney injury on chronic kidney disease stage IV - likely due to CHF and Lasix use Monitor closely, labs in a.m. Avoid nephrotoxins, Nephrology consult Qualifiers: Acute renal failure type: unspecified Chronic kidney disease stage: stage 3 (moderate) Qualified Code(s): N17.9 - Acute kidney failure, unspecified; N18.3 - Chronic kidney disease, stage 3 (moderate) (5) Hypertension Current Visit: Yes Status: Chronic Assessment and plan: Essential hypertension, controlled, monitor Continue Cardizem, Lopressor, Hydralazine Qualifiers: Hypertension type: essential hypertension Qualified Code(s): I10 - Essential (primary) hypertension (6) Type 2 diabetes mellitus with hypoglycemia Current Visit: Yes Status: Acute Assessment and plan: Type 2 diabetes mellitus, [id number]-[id number], hyperglycemia Continue insulin sliding scale, glucose checks Qualifiers: Diabetes mellitus complication detail: without coma Diabetes mellitus snf insulin use: without snf use Qualified Code(s): E11.649 - Type 2 diabetes mellitus with hypoglycemia without coma (7) DVT prophylaxis Current Visit: Yes Status: Acute Assessment and plan: Continue heparin subcutaneous - Time Spent With Patient 25 - 35 minutes - Subjective Interval history: Examined this morning. Patient is awake and alert. Not in any distress. Denies chest pain or shortness of breath. No fever. Hemodynamically stable. States she feels better. Denies any dizziness or vomiting. Tolerating oral diet well. No other acute events or complaints. Admitted for generalized weakness due to hypoglycemia and uncontrolled hypertension and right foot cellulitis. Renal function is worsening. - Constitutional Vitals: Temp Pulse Resp BP Pulse Ox 98.2 F 66 16 169/60 96 02/10/17 11:39 02/10/17 15:04 02/10/17 11:39 02/10/17 11:39 02/10/17 11:39 General appearance: Present: A&O X 3, pleasant, no acute distress, obese, answers questions appropriately - Head Head exam: Present: atraumatic - Eye Eye exam: Present: EOMI - ENT ENT exam: Present: mucous membranes moist - Respiratory Respiratory exam: Present: CTAB. Absent: rales, rhonchi, wheezes, tachypnea - Cardiovascular Cardiovascular exam: Present: RRR, +S1, +S2 - GI/Abdominal GI/Abdominal exam: Present: soft. Absent: distended, firm, guarding, tenderness - Extremities Exam Extremities exam: Present: radial pulses palpable and symmetrical. Absent: calf tenderness, cyanotic, pedal edema - Neurological Exam Neurological exam: Present: alert, oriented X3, no focal deficits. Absent: facial droop, speech deficit Internal Medicine: Result - Labs CBC & Chem 7: 02/10/17 04:43 02/10/17 04:43 Labs: Short CBC 02/10/17 Range/Units 04:43 WBC 9.4 (4.3-11.1) K/mcL Hgb 8.3 L (11.5-15.4) g/dL Hct 26.2 L (35.3-44.9) % Plt Count 292 (140-400) K/mcL Neutrophils # 6.4 (1.6-8.9) K/mcL BMP 02/10/17 04:43 Sodium 141 Potassium 4.3 Chloride 111 H Carbon Dioxide 23 BUN 37 H Creatinine 3.92 H Glucose 193 H Calcium 8.3 L - ABG Interpretation ABG results: PT/INR, D-dimer PT 11.5 Seconds (9.4-12.1) 02/08/17 04:12 - VTE Documentation of Mechanical Device: Intermittent pneumatic compression device Consult Discharge Plan - Plan Referrals: KAILEE GUPTA [Other] - 02/15/17 10:00 am (HIS OFFICE IS LOCATED NEXT TO [facility])
--- NOTE | 2017-02-10 17:08 | Electrocardiograph Report ---
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
--- NOTE | 2017-02-10 18:41 | Nephrology Consult Note ---
Date of Encounter: 02/10/17 Time of Encounter: 15:35 Assessment and Plan (1) ISAIAH (acute kidney injury) Status: Acute Nonoliguric ISAIAH on CKD stage IV. She was not uremic this evening. I agree with holding diuretics, as I suspect she has a decrease in the effective arterial blood volume despite having ongoing signs of chronic peripheral edema. Due to her edema, I will hold off on given gentle IVF tonight. She voiced not having any confusion, decline in appetite, N/V. She was not overtly hyperkalemic or acidotic. So will hold off on urgent HD tonight. She said that about 4-5 years ago she previously saw Dr. Reynolds. She said her PCP Dr. Gonzalez has referred her back to Dr. Reynolds but d/t her recent fall/hospitalization, she missed the appt. Continue to follow a renal protective strategy. Thank you for consulting the [facility] group. Will closely follow with you. (2) Peripheral edema Status: Acute See above (3) Anemia in chronic illness Status: Acute See above (4) Hypertension Status: Chronic See above Qualifiers: Hypertension type: essential hypertension Qualified Code(s): I10 - Essential (primary) hypertension (5) Chronic kidney disease, stage IV (severe) Status: Acute See above History of Present Illness - Reason for Consult Consult date: 02/10/17 Acute Kidney Injury, Chronic Kidney Disease Requesting physician: Ramana Bernal - Chief Complaint ISAIAH on CKD stage IV - History of Present Illness Prisca Mas is a very pleasant 86 y/o morbidly obese WF with a pmh of CKD ( previously followed by Dr. Reynolds according to the patient), DM, obesity, HTN, chronic LE edema and et al who presented with worsened edema, acute diastolic CHF and was found to have worsening renal function. Nephrology was consulted for the ISAIAH on pre-existing advanced CKD. She reported having no uremic symptoms (i.e., no N/V/D, diminished appetite, confusion, dysuria, reduced UOP) . She voiced feeling actually a little improved in terms of her swelling as compared to the last few days. She was originally found to have advanced CKD and saw Dr. Reynolds years ago, but she said she had never gone back (unclear why) . She voiced interest in wanting to see Dr. Reynolds again ("only in the clinic"), she said; but, when I discussed her renal failure findings, she strongly said that she would "never" want dialysis. Past Med Surg Social Fam HX - Past Medical History Medical history: diabetes, hyperlipidemia, hypertension, thyroid disease Psychiatric history: no psych history - Past Surgical History Surgical History: cholecystectomy - Social History Smoking Status: Former smoker Smokeless Tobacco Status: No Alcohol use: none Drug use: none - Family History Sister Living Status: Father Living Status: Brother History Unknown: Yes Living Status: Medications and Allergies Ascorbate Calcium [Vitamin C] 500 mg PO DAILY 01/11/17 [History] Diltiazem HCl [Diltiazem 24Hr Cd] 120 mg PO DAILY 01/11/17 [History] HYDROcodone/Acet 5/325 mg [[place] 5-325 mg] 0.5 - 1 tab PO BID PRN 01/11/17 [ History] Levothyroxine [Synthroid] 100 mcg PO 0630 01/11/17 [History] Ferrous Gluconate 324 mg PO DAILY #30 tablet 01/15/17 [Rx] Omeprazole [PriLOSEC] 40 mg PO BIDAC #60 capsule. 01/15/17 [Rx] Sucralfate [Carafate] 1 gm PO 0730,1630 #60 tablet 01/15/17 [Rx] Ipratropium/Albuterol Neb [Duoneb] 3 ml IH [id number] PRN #30 inhsol 02/12/17 [Rx] Metoprolol [Lopressor] 25 mg PO BID #60 tablet 02/12/17 [Rx] Simvastatin [Zocor] 40 mg PO HS tablet 02/12/17 [Rx] cephALEXin [Keflex] 250 mg PO BID 7 Days #14 capsule 02/12/17 [Rx] hydrALAZINE [HydrALAZINE] 25 mg PO Q8HR #90 tablet 02/12/17 [Rx] 3 Allergy/AdvReac Type Severity Reaction Status Date / Time No Known Allergies Allergy Verified 01/11/17 12:53 Review of Systems All Systems: reviewed and no additional remarkable complaints except as stated Exam - Vital Signs Vital signs: Initial Vital Signs Temp Pulse Resp BP Pulse Ox 97.6 F 72 20 192/75 96 02/08/17 04:03 02/08/17 04:03 02/08/17 04:03 02/08/17 04:03 02/08/17 04:03 Vital Signs - Last 8 Hours Temp Pulse Resp BP Pulse Ox 02/10/17 16:16 98.4 F 67 22 146/58 96 02/10/17 15:04 66 02/10/17 11:39 98.2 F 72 16 169/60 96 02/10/17 11:07 68 Intake and Output 02/10/17 02/10/17 02/10/17 07:59 15:59 23:59 Intake Total 800 / 800 580 / 580 960 / 960 Output Total 100 / 100 300 / 300 Balance 700 / 700 580 / 580 660 / 660 Intake: IV Fluids 100 / 100 Rocephin 1,000 MG In Dextrose 5 100 / 100 % (Minibag+) 100 ML 100 ML @ 200 mls/hr IVPB DAILY [facility] Rx#: [id number] Oral 800 / 800 480 / 480 960 / 960 Output: Urine 100 / 100 300 / 300 Other: Meal Lunch Dinner Percent of Meal Consumed 100% 100% Stool Size Moderate Moderate Stool Consistency soft soft formed Stool Color Brown Brown # Voids 1 # Bowel Movements 1 Weight 98.1 kg 98.1 kg Blood Glucose* 240 217 213 Patient Weight 02/10/17 23:59 Weight 98.1 kg - General Appearance Exam: General appearance: Present: well-developed, well-nourished, obese EENT: Present: ATNC, mucous membranes moist, hearing intact, vision intact Neck: Present: supple Respiratory: Present: clear Cardiology: Present: edema, normal S1, normal S2 Gastrointestinal: Present: no tenderness, no guarding Integumentary: Present: warm and dry Neurologic: Present: alert and oriented x3 Psychiatric: Present: mood/affect appropriate, cooperative Results - Lab Results 02/12/17 05:18 02/12/17 05:18 Most recent lab results Calcium 8.3 mg/dL (8.6-10.8) L 02/10/17 04:43 Magnesium 2.0 mg/dL (1.6-2.6) 02/09/17 02:42 I reviewed the labs, meds, vitals, progress notes, imaging for this high-risk patient. Consult Discharge Plan - Plan Instructions: Cephalexin (By mouth), Metoprolol (By mouth), Hydralazine (By mouth), Ipratropium/Albuterol (By breathing), Diabetes Mellitus Type 2 in Adults (DC) Referrals: KAILEE GONZALEZ [Other] - 02/15/17 10:00 am (HIS OFFICE IS LOCATED NEXT TO [facility]) Melvin Carcamo MD [Partnered Physician] - 02/16/17 2:30 pm Prescriptions: Ipratropium/Albuterol Neb [Duoneb] 3 ml IH [id number] PRN #30 inhsol PRN Reason: Shortness Of Breath/Wheezing hydrALAZINE [HydrALAZINE] 25 mg PO Q8HR #90 tablet cephALEXin [Keflex] 250 mg PO BID 7 Days #14 capsule Metoprolol [Lopressor] 25 mg PO BID #60 tablet
[2017-02-11] MEDS: Ipratropium/Albuterol Neb 3 ML IH SCH ×4 (03:12→22:13)
[2017-02-11] MEDS: hydrALAZINE 25 MG TABLET PO SCH ×4 (03:26→23:50)
[2017-02-11 05:31] LABS: Basophils # 0.1 K/mcL (0.0-0.2); Basophils % 0.8 %; Eosinophils # 0.4 K/mcL (0.0-0.6); Eosinophils % 4.2 %; Hematocrit 26.2 % (35.3-44.9); Hemoglobin 8.2 g/dL (11.5-15.4); Immature Granulocytes % 0.7 % (0-4); Lymphocytes # 1.5 K/mcL (0.6-4.6); Mean Corpuscular HGB Conc 31.3 g/dL (31.6-35.5); Mean Corpuscular Hemoglobin 27.2 pg (28.0-33.3); Mean Platelet Volume 10.4 fL (9.4-12.4); Monocytes % 11.5 %; Neutrophils # 5.8 K/mcL (1.6-8.9); Platelet Count 277 K/mcL (140-400); Red Blood Count 3.01 M/mcL (3.82-4.97); Red Cell Distribution Width 15.2 % (11.5-14.5); Segmented Neutrophils % 65.8 %
[2017-02-11] MEDS: *HR* Heparin 5,000 UNIT/ML VIAL SQ SCH ×2 (05:39→16:16)
[2017-02-11 05:44] LABS: Calcium 8.4 mg/dL (8.6-10.8); Phosphorous 5.4 mg/dL (2.3-4.7); Potassium 4.3 mEq/L (3.5-4.5)
[2017-02-11 06:09] LABS: Hepatitis A Antibody IgM Nonreactive (Nonreactive); Hepatitis B Core IgM Nonreactive (Nonreactive); Hepatitis B Surface Antigen Nonreactive (Nonreactive); Hepatitis C Virus Antibody Nonreactive (Nonreactive)
[2017-02-11] MEDS: Insulin LISPRO 300 UNITS/3 ML VIAL SQ SCH ×3 (07:58→16:16)
[2017-02-11] MEDS: Sucralfate 1 GM TABLET PO SCH ×2 (07:58→16:16)
[2017-02-11] MEDS: Diltiazem CD (24hr) 120 MG CAPSULE PO SCH (07:59)
--- NOTE | 2017-02-11 10:23 | Nephrology Progress Note ---
Date of Encounter: 02/11/17 Time of Encounter: 10:20 - Assessment and Plan (1) ISAIAH (acute kidney injury) Current Visit: Yes Status: Acute Kidney function continues to worsen Scr 4.34, GFR 10 Patient adamantly states she does not want to have dialysis; says she will never have dialysis and when her time is up, then her time is up. UOP 520 No uremic signs at this time Patient would like discharged home and to follow up in the office with the nephrologists. Patient should be on a renal diet-ordered (2) Chronic kidney disease, stage IV (severe) Current Visit: No Status: Acute see above (3) Hypertension Current Visit: Yes Status: Chronic b/p stable 162/51 per primary team Qualifiers: Hypertension type: essential hypertension Qualified Code(s): I10 - Essential (primary) hypertension Subjective Principal diagnosis: ISAIAH, anemia, HTN, CKD stage 4 Interval history: Patient seen and examined. States she is doing well. When asked if patient would want to do dialysis if needed she adamantly states "NO". Objective - Vital Signs Vital signs: Vital Signs Temp Pulse Resp BP Pulse Ox 02/11/17 07:50 98.7 F 58 19 162/51 97 02/11/17 07:25 98.7 F 58 19 162/51 97 02/11/17 04:00 98.9 F 63 18 135/72 93 02/11/17 03:12 16 96 02/11/17 00:30 99.1 F 56 18 116/42 94 02/10/17 23:12 20 91 02/10/17 20:12 98.5 F 68 18 161/93 92 02/10/17 16:16 98.4 F 67 22 146/58 96 02/10/17 15:04 66 02/10/17 11:39 98.2 F 72 16 169/60 96 02/10/17 11:07 68 Intake and Output 02/10/17 02/11/17 02/11/17 23:59 07:59 15:59 Intake Total 960 / 960 790 / 790 240 / 240 Output Total 420 / 420 100 / 100 Balance 540 / 540 690 / 690 240 / 240 Intake: Oral 960 / 960 790 / 790 240 / 240 Output: Urine 420 / 420 100 / 100 Other: Meal Dinner Breakfast Percent of Meal Consumed 100% 100% Stool Size Small Stool Consistency soft Stool Color Brown # Bowel Movements 1 Weight 99.8 kg Blood Glucose* 184 169 Patient Weight 02/11/17 23:59 Weight 99.8 kg - General Appearance General appearance: Present: well-developed, well-nourished, obese EENT: Present: ATNC, mucous membranes moist, hearing intact, vision intact Neck: Present: supple Respiratory: Present: clear Cardiology: Present: edema, normal S1, normal S2 Gastrointestinal: Present: no tenderness, no guarding Integumentary: Present: warm and dry Neurologic: Present: alert and oriented x3 Psychiatric: Present: mood/affect appropriate, cooperative - Lab 02/11/17 05:21 02/11/17 05:21 Most recent lab results Calcium 8.4 mg/dL (8.6-10.8) L 02/11/17 05:21 Phosphorus 5.4 mg/dL (2.3-4.7) H 02/11/17 05:21 Magnesium 2.0 mg/dL (1.6-2.6) 02/11/17 05:21 - VTE Documentation of Mechanical Device: Intermittent pneumatic compression device Consult Discharge Plan - Plan Referrals: KAILEE GUPTA [Other] - 02/15/17 10:00 am (HIS OFFICE IS LOCATED NEXT TO [facility])
--- NOTE | 2017-02-11 19:11 | Internal Med Progress Note ---
Date of Encounter: 02/11/17 Time of Encounter: 10:20 - Assessment and plan (1) Acute on chronic diastolic heart failure Current Visit: Yes Status: Acute Assessment and plan: Acute on chronic diastolic CHF with LVEF 60-65% - now improved, patient continues to have bilateral leg edema Stop Lasix due to acute kidney injury Chest x-ray - new diffuse bilateral interstitial airspace opacities, likely edema Strict I's and O's, daily weight, fluid restriction Cardiac telemetry, labs in a.m., monitor closely Anticipate discharge in a.m. (2) Elevated troponin Current Visit: Yes Status: Acute Assessment and plan: Elevated troponin likely due to initial uncontrolled hypertension - no chest pain Patient had recent GI bleed so she is not a candidate for anticoagulation Patient was recently evaluated by cardiology and they recommended no further ischemic workup Continue Simvastatin (3) Cellulitis of right foot Current Visit: Yes Status: Acute Assessment and plan: Acute right foot cellulitis - swelling and erythema has improved Continue empiric Keflex (4) Acute on chronic kidney failure Current Visit: No Status: Acute Assessment and plan: Acute kidney injury on chronic kidney disease stage IV - likely due to CHF and Lasix use Monitor closely, labs in a.m. Avoid nephrotoxins Nephrology consult - recommendations reviewed, appreciate input Qualifiers: Acute renal failure type: unspecified Chronic kidney disease stage: stage 3 (moderate) Qualified Code(s): N17.9 - Acute kidney failure, unspecified; N18.3 - Chronic kidney disease, stage 3 (moderate) (5) Hypertension Current Visit: Yes Status: Chronic Assessment and plan: Essential hypertension, controlled, monitor Continue Cardizem, Lopressor, Hydralazine Qualifiers: Hypertension type: essential hypertension Qualified Code(s): I10 - Essential (primary) hypertension (6) Type 2 diabetes mellitus with hypoglycemia Current Visit: Yes Status: Acute Assessment and plan: Type 2 diabetes mellitus, [id number]-wmgwpkqpb, hyperglycemia Continue insulin sliding scale, glucose checks Qualifiers: Diabetes mellitus complication detail: without coma 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 Patient is awake and alert. Not in any distress. Denies chest pain or shortness of breath. No fever. Hemodynamically stable. States she feels better. Denies any dizziness or vomiting. Tolerating oral diet well. No other acute events or complaints. Admitted for generalized weakness due to hypoglycemia and uncontrolled hypertension and right foot cellulitis. Patient wants to go home today. Renal function is worsening. Anticipate discharge home in a.m. - Constitutional Vitals: Temp Pulse Resp BP Pulse Ox 98.1 F 56 18 115/45 96 02/11/17 16:15 02/11/17 16:15 02/11/17 16:24 02/11/17 16:15 02/11/17 16:24 General appearance: Present: cooperative, A&O X 3, pleasant, no acute distress, obese, answers questions appropriately - Head Head exam: Present: atraumatic - Eye Eye exam: Present: EOMI - ENT ENT exam: Present: mucous membranes moist - Respiratory Respiratory exam: Present: CTAB. Absent: rales, rhonchi, wheezes, tachypnea - Cardiovascular Cardiovascular exam: Present: RRR, +S1, +S2 - GI/Abdominal GI/Abdominal exam: Present: soft. Absent: distended, firm, guarding, tenderness - Extremities Exam Extremities exam: Present: pedal edema (Bilaterally 2+ edema pitting), radial pulses palpable and symmetrical. Absent: calf tenderness, cyanotic - Neurological Exam Neurological exam: Present: alert, oriented X3, no focal deficits. Absent: facial droop, speech deficit Internal Medicine: Result - Labs CBC & Chem 7: 02/11/17 05:21 02/11/17 05:21 Labs: Short CBC 02/11/17 Range/Units 05:21 WBC 8.8 (4.3-11.1) K/mcL Hgb 8.2 L (11.5-15.4) g/dL Hct 26.2 L (35.3-44.9) % Plt Count 277 (140-400) K/mcL Neutrophils # 5.8 (1.6-8.9) K/mcL BMP 02/11/17 05:21 Sodium 140 Potassium 4.3 Chloride 109 Carbon Dioxide 20 BUN 41 H Creatinine 4.34 H Glucose 174 H Calcium 8.4 L - ABG Interpretation ABG results: PT/INR, D-dimer PT 11.5 Seconds (9.4-12.1) 02/08/17 04:12 - VTE Documentation of Mechanical Device: Intermittent pneumatic compression device Consult Discharge Plan - Plan Referrals: KAILEE GUPTA [Other] - 02/15/17 10:00 am (HIS OFFICE IS LOCATED NEXT TO [facility])
[2017-02-11] MEDS: cephALEXin 250 MG CAPSULE PO SCH (21:35)
[2017-02-12] MEDS: Ipratropium/Albuterol Neb 3 ML IH SCH ×2 (03:58→10:59)
[2017-02-12] MEDS: *HR* Heparin 5,000 UNIT/ML VIAL SQ SCH (06:13)
[2017-02-12 06:18] LABS: Calcium 8.5 mg/dL (8.6-10.8); Potassium 4.6 mEq/L (3.5-4.5)
[2017-02-12 06:22] LABS: Basophils # 0.1 K/mcL (0.0-0.2); Basophils % 0.7 %; Eosinophils # 0.4 K/mcL (0.0-0.6); Eosinophils % 4.3 %; Hematocrit 25.8 % (35.3-44.9); Hemoglobin 8.1 g/dL (11.5-15.4); Immature Granulocytes % 0.6 % (0-4); Lymphocytes # 1.5 K/mcL (0.6-4.6); Lymphocytes % 16.2 %; Mean Corpuscular HGB Conc 31.4 g/dL (31.6-35.5); Mean Corpuscular Hemoglobin 27.3 pg (28.0-33.3); Mean Corpuscular Volume 86.9 fL (83.0-100.0); Mean Platelet Volume 11.3 fL (9.4-12.4); Monocytes # 1.1 K/mcL (0.0-1.3); Monocytes % 11.3 %; Neutrophils # 6.3 K/mcL (1.6-8.9); Platelet Count 291 K/mcL (140-400); Red Blood Count 2.97 M/mcL (3.82-4.97); Red Cell Distribution Width 15.3 % (11.5-14.5); Segmented Neutrophils % 66.9 %
[2017-02-12 07:24] VITALS: BP 155/51
[2017-02-12] MEDS: Insulin LISPRO 300 UNITS/3 ML VIAL SQ SCH (08:08)
[2017-02-12] MEDS: Sucralfate 1 GM TABLET PO SCH (08:08)
[2017-02-12] MEDS: cephALEXin 250 MG CAPSULE PO SCH (09:43)
[2017-02-12] MEDS: Diltiazem CD (24hr) 120 MG CAPSULE PO SCH (09:43)
[2017-02-12] MEDS: hydrALAZINE 25 MG TABLET PO SCH (09:43)
--- NOTE | 2017-02-12 10:31 | Discharge Summary ---
Date of Encounter: 02/12/17 Time of Encounter: 10:15 - Discharge Diagnosis (1) Acute on chronic kidney failure Priority: Primary Status: Acute Comments: Acute kidney injury on chronic kidney disease stage IV - likely due to CHF and Lasix use - worsening renal function No uremic findings, Avoid nephrotoxins Nephrology consult - recommendations reviewed, appreciate input Patient has adamantly refused any option for Hemodialysis, patient has been explained by nephrology in detail Options include hospice, patient has been explained Patient is upset today, states she was not discharged earlier yesterday and is refusing to listen to any advice or let me examine her Return if symptoms worsen, follow up with nephrology and PCP as outpatient Patient is threatening to leave AMA if she is not discharged today Qualifiers: Acute renal failure type: unspecified Chronic kidney disease stage: stage 3 (moderate) Qualified Code(s): N17.9 - Acute kidney failure, unspecified; N18.3 - Chronic kidney disease, stage 3 (moderate); N18.3 - Chronic kidney disease, stage 3 (moderate) (2) Acute on chronic diastolic heart failure Priority: Primary Status: Acute Comments: Acute on chronic diastolic CHF with LVEF 60-65% - shortness of breath has now improved, patient continues to have bilateral leg edema Stop Lasix due to acute kidney injury Chest x-ray - new diffuse bilateral interstitial airspace opacities, likely edema Maintain fluid restriction 1.5 L daily Return if symptoms worsen, follow-up with PCP (3) Elevated troponin Priority: Primary Status: Acute Comments: Elevated troponin likely due to initial uncontrolled hypertension - no chest pain Patient had recent GI bleed so she is not a candidate for anticoagulation Patient was recently evaluated by cardiology and they recommended no further ischemic workup Continue Simvastatin (4) Cellulitis of right foot Priority: Primary Status: Acute Comments: Acute right foot cellulitis - swelling and erythema has improved Continue empiric Keflex (5) Hypertension Priority: Secondary Status: Chronic Comments: Essential hypertension, controlled, monitor Continue Cardizem, Lopressor, Hydralazine Stop Lisinopril due to worsening renal function Qualifiers: Hypertension type: essential hypertension Qualified Code(s): I10 - Essential (primary) hypertension (6) Type 2 diabetes mellitus with hypoglycemia Priority: Secondary Status: Chronic Comments: Type 2 diabetes mellitus, [id number], hyperglycemia stop glimepiride due to worsening renal function and risk of hypoglycemia Qualifiers: Diabetes mellitus complication detail: without coma Diabetes mellitus termite helper insulin use: without jail use Qualified Code(s): E11.649 - Type 2 diabetes mellitus with hypoglycemia without coma - Discharge Medications Prescriptions: Ipratropium/Albuterol Neb [Duoneb] 3 ml IH [id number] PRN #30 inhsol PRN Reason: Shortness Of Breath/Wheezing hydrALAZINE [HydrALAZINE] 25 mg PO Q8HR #90 tablet cephALEXin [Keflex] 250 mg PO BID 7 Days #14 capsule Metoprolol [Lopressor] 25 mg PO BID #60 tablet Home Medications: Ascorbate Calcium [Vitamin C] 500 mg PO DAILY 01/11/17 [History] Diltiazem HCl [Diltiazem 24Hr Cd] 120 mg PO DAILY 01/11/17 [History] HYDROcodone/Acet 5/325 mg [[place] 5-325 mg] 0.5 - 1 tab PO BID PRN 01/11/17 [ History] Levothyroxine [Synthroid] 100 mcg PO 0630 01/11/17 [History] Ferrous Gluconate 324 mg PO DAILY #30 tablet 01/15/17 [Rx] Omeprazole [PriLOSEC] 40 mg PO BIDAC #60 capsule. 01/15/17 [Rx] Sucralfate [Carafate] 1 gm PO 0730,1630 #60 tablet 01/15/17 [Rx] Ipratropium/Albuterol Neb [Duoneb] 3 ml IH [id number] PRN #30 inhsol 02/12/17 [Rx] Metoprolol [Lopressor] 25 mg PO BID #60 tablet 02/12/17 [Rx] Simvastatin [Zocor] 40 mg PO HS tablet 02/12/17 [Rx] cephALEXin [Keflex] 250 mg PO BID 7 Days #14 capsule 02/12/17 [Rx] hydrALAZINE [HydrALAZINE] 25 mg PO Q8HR #90 tablet 02/12/17 [Rx] Allergies/Adverse Reactions: 3 Allergy/AdvReac Type Severity Reaction Status Date / Time No Known Allergies Allergy Verified 01/11/17 12:53 Procedures/tests Complete & Pending: Procedures Performed prior 72 hours Category Date Time Status ECG 12 lead ECG [ECG] Stat Y 02/09/17 14:52 Completed Date of admission: 02/08/17 09:34 Primary care physician: Elton Gupta MD Consults: 02/10/17 09:42 Consult to Technical Developer [CONS] Routine Reason for SW Consult: possible needs on discharge 02/10/17 11:58 Consult to Nephrology [CONS] Routine Consulting Provider: Kidney Lois/BEVERLY/BEVERLY/TUTU Reason for Consult: ISAIAH on CKD Call Completed: Yes Anticipated date of discharge: 02/12/17 - Patient Status Disposition: Home Health Service Condition: Serious Functional capacity at discharge: independent ambulation Overall status at discharge: patient is not back to baseline - Discharge Instructions Instructions: Cephalexin (By mouth), Metoprolol (By mouth), Hydralazine (By mouth), Ipratropium/Albuterol (By breathing), Diabetes Mellitus Type 2 in Adults (DC) Follow Up With: ELTON GUPTA [Other] - 02/15/17 10:00 am (HIS OFFICE IS LOCATED NEXT TO [facility]) Melvin Carcamo MD [Partnered Physician] - 02/16/17 2:30 pm - Diet and Activity Activity: increase activity as tolerated, resume usual activities as tolerated Diet: other (Renal diet) Hospital course: Ms. Mas is a 86 year old female with past medical history diabetes, hypertension, hyperlipidemia, thyroid disease and chronic kidney disease. She presented to the ED with complaints of generalized weakness. She had sudden onset of generalized weakness and had difficulty standing up and also complained of dizziness. She denied chest pain or loss of consciousness. She was found to have low blood glucose and she was given IV dextrose. In the ED revealed glucose was 70 and her symptoms were improving. She was initially hypothermic but this is now resolved. Patient will need to stop glyburide in view of hypoglycemia and chronic kidney disease. Patient was also started on empiric IV Rocephin for cellulitis of her right foot. Cellulitis has now resolved and she is being discharged with Keflex. Patient did have elevated troponin probably due to initial hypertensive urgency. She was chest pain- free. She will be treated medically. She is not a good candidate for anticoagulation due to recent GI bleed. She will be only on statin at this time. She was recently evaluated by cardiology and she was found that she was not a good candidate for further ischemic workup. Echocardiogram was obtained during previous visit. Patient was started on Lasix for acute exacerbation of chronic diastolic CHF with LV EF 60-65%. Chest x-ray did show some opacities likely edema. She was on food and I's and O's strictly and daily weight. Patient developed acute kidney injury on chronic kidney disease. Her creatinine has been gradually worsening. Patient continues to have bilateral leg edema. She has been evaluated by nephrology. Patient was recommended hemodialysis in view of worsening renal function. The patient is adamant that she does not want any hemodialysis. She has been explained in detail by myself and by nephrology that the risk of likely from refusing further treatment from her renal failure and volume overload. Patient was also given the option of hospice and she does not want to discuss this with any physician at this time. Patient was also adamant about leaving and being discharged today. She states she will follow-up with her primary care physician and also with her hydrographical technical officer as outpatient. Patient's lisinopril and glyburide have been discontinued. Lasix has also been stopped. Patient has been explained about her condition and plan of care in detail. She understood and agreed. No unanswered questions. She had no other acute events or complications during her stay. She is tolerating oral diet well and ambulating well. Patient was again given option to stay for further management of worsening renal function, but she refused. Prognosis is guarded. - Time Spent with Patient Total time spent providing and/or coordinating discharge services: Greater than 30 minutes - Constitutional Vitals: Temp Pulse Resp BP Pulse Ox 98.7 F 61 18 155/51 94 02/12/17 00:21 02/12/17 07:19 02/12/17 07:19 02/12/17 07:19 02/12/17 07:19 General appearance: Present: A&O X 3, no acute distress, obese, answers questions appropriately. Absent: cooperative, pleasant Exam: Patient is upset with me today. She is refusing to take any advice and wants to leave now. She is also refusing to let me examine her. - Head Head exam: Present: atraumatic - Eye Eye exam: Present: EOMI - ENT ENT exam: Present: mucous membranes moist - Extremities Exam Extremities exam: Present: pedal edema (Bilateral 3+ pitting edema), radial pulses palpable and symmetrical. Absent: calf tenderness, cyanotic - Neurological Exam Neurological exam: Present: alert, oriented X3, no focal deficits. Absent: facial droop, speech deficit - VTE Documentation of Mechanical Device: Intermittent pneumatic compression device
--- NOTE | 2017-02-12 10:46 | Physician Discharge Referral ---
Home Health/Hosp Referral Info Transfer to: Home Health Provider in Charge Post Discharge: PCP - Diagnosis (1) Acute on chronic kidney failure Priority: Primary Status: Acute (2) Acute on chronic diastolic heart failure Priority: Primary Status: Acute (3) Elevated troponin Priority: Primary Status: Acute (4) Cellulitis of right foot Priority: Primary Status: Acute (5) Hypertension Priority: Secondary Status: Chronic (6) Type 2 diabetes mellitus with hypoglycemia Priority: Secondary Status: Chronic - Respiratory Orders Smoking Cessation: Smoking cessation has been advised. For more information, call the [place] Tobacco Quit Line at 8-131-ZZVW-NOW. - Diet/Nutrition Diet/Nutrition Orders: Renal - Activity Activity Orders: Ambulate - Services Needed Following services are medically necessary services: Nursing, Physical Therapy - Transfer Medications Prescriptions: Ipratropium/Albuterol Neb [Duoneb] 3 ml IH [id number] PRN #30 inhsol PRN Reason: Shortness Of Breath/Wheezing hydrALAZINE [HydrALAZINE] 25 mg PO Q8HR #90 tablet cephALEXin [Keflex] 250 mg PO BID 7 Days #14 capsule Metoprolol [Lopressor] 25 mg PO BID #60 tablet Home Medications: Ascorbate Calcium [Vitamin C] 500 mg PO DAILY 01/11/17 [History] Diltiazem HCl [Diltiazem 24Hr Cd] 120 mg PO DAILY 01/11/17 [History] Furosemide [Lasix] 40 mg PO DAILY 01/11/17 [History] HYDROcodone/Acet 5/325 mg [[place] 5-325 mg] 0.5 - 1 tab PO BID PRN 01/11/17 [ History] Levothyroxine [Synthroid] 100 mcg PO 0630 01/11/17 [History] Ferrous Gluconate 324 mg PO DAILY #30 tablet 01/15/17 [Rx] Omeprazole [PriLOSEC] 40 mg PO BIDAC #60 capsule. 01/15/17 [Rx] Sucralfate [Carafate] 1 gm PO 0730,1630 #60 tablet 01/15/17 [Rx] Ipratropium/Albuterol Neb [Duoneb] 3 ml IH [id number] PRN #30 inhsol 02/12/17 [Rx] Metoprolol [Lopressor] 25 mg PO BID #60 tablet 02/12/17 [Rx] Simvastatin [Zocor] 40 mg PO HS tablet 02/12/17 [Rx] cephALEXin [Keflex] 250 mg PO BID 7 Days #14 capsule 02/12/17 [Rx] hydrALAZINE [HydrALAZINE] 25 mg PO Q8HR #90 tablet 02/12/17 [Rx] Allergies/Adverse Reactions: 3 Allergy/AdvReac Type Severity Reaction Status Date / Time No Known Allergies Allergy Verified 01/11/17 12:53 Certification: Further, I certify that my clinical findings support that this patient is homebound (i.e. absences from home require considerable and taxing effort and are for medical reasons or zoroastrianism services or infrequently or short duration when for other reasons) because: Homebound Reason: Patient requires assistance of a person or device to safely leave home Attestation: My signature below is to certify that this patient is under my care and that I, or nurse practitioner, or a physician's assistant store manager operations working with me, has a face-to -face encounter with this patient.
--- NOTE | 2017-02-12 11:02 | Nephrology Progress Note ---
Date of Encounter: 02/12/17 Time of Encounter: 11:00 - Assessment and Plan (1) ISAIAH (acute kidney injury) Current Visit: Yes Status: Acute Kidney function significantly worsened today with Cr of 5.47, GFR 7 urine output total yesterday was recorded at 100ml, significantly decreased from 520ml the day prior. patient does not have any signs of uremia at this time. overall, she has severe ISAIAH on CKD and is progresssing to end stage renal disease. However, she has adamently stated that she does not want dialysis. Plan: at this time, since patient is refusing dialysis we would recommend inpatient hospital stay for medical management for her ISAIAH/CKD (especially with worsening renal function, hyperkalemia, elevated BUN, decreased urine output). However, patient is adament about going home today. risks of going home at this time were explained by attending physician, Dr. Carcamo. Risks include but are not limited to: uremia, hyperkalemia, arrhythmia, fluid overload, and . patient 's neice was in the room. patient and neice expressed full understanding of the situation. patient is alert and oriented x3, and is fully capable of making her own decisions at this time. Since she is not going home on hospice currently, we do not recommend discharging her on nephrotoxins, as her renal function is unpredictable at this time. we recommend outpatient follow up with [facility] should patient change her mind. (2) Chronic kidney disease, stage IV (severe) Current Visit: No Status: Acute as above (3) Fluid overload Current Visit: Yes Status: Acute as above Qualifiers: Hypervolemia type: unspecified Qualified Code(s): E87.70 - Fluid overload, unspecified (4) Hyperkalemia Current Visit: Yes Status: Acute as above (5) Hypertension Current Visit: Yes Status: Chronic as above Qualifiers: Hypertension type: essential hypertension Qualified Code(s): I10 - Essential (primary) hypertension Subjective Principal diagnosis: ISAIAH, anemia, HTN, CKD stage 4 Interval history: 86F evaluated at bedside. she denies nausea, vomiting, diarrhea, fever, chills, chest pain, shortness of breath. she denies any new problems today. Objective - Vital Signs Vital signs: Vital Signs Temp Pulse Resp BP Pulse Ox 02/12/17 10:59 18 95 02/12/17 07:19 61 18 155/51 94 10/27/17 04:33 62 18 139/49 95 02/12/17 03:59 17 95 02/12/17 00:21 98.7 F 59 17 130/48 96 02/11/17 23:45 61 02/11/17 22:13 17 95 02/11/17 21:15 66 02/11/17 20:11 69 18 140/51 97 02/11/17 16:24 18 96 02/11/17 16:15 98.1 F 56 18 115/45 96 02/11/17 15:57 98.1 F 56 18 115/45 96 02/11/17 11:09 98.7 F 56 20 133/60 97 Intake and Output 02/11/17 02/12/17 02/12/17 23:59 07:59 15:59 Intake Total 600 / 600 480 / 480 Output Total 0 / 0 Balance 600 / 600 480 / 480 Intake: Oral 600 / 600 480 / 480 Output: Urine 0 / 0 Other: Meal Dinner Breakfast Percent of Meal Consumed 100% 100% Blood Glucose* 210 177 - General Appearance General appearance: Present: well-developed, well-nourished, appears started age , obese Neck: Present: supple Respiratory: Present: clear Additional Comments: CTAB Cardiology: Present: no rub, no gallops, normal S1, normal S2 Additional Comments: mild systolic murmur noted. significant +3 lower extremity pitting edema. Additional Comments: soft, non distended, non tender, positive bowel sounds. Neurologic: Present: alert and oriented x3 - Lab 02/12/17 05:18 02/12/17 05:18 Most recent lab results Calcium 8.5 mg/dL (8.6-10.8) L 02/12/17 05:18 Phosphorus 5.4 mg/dL (2.3-4.7) H 02/11/17 05:21 Magnesium 2.0 mg/dL (1.6-2.6) 02/11/17 05:21 - VTE Documentation of Mechanical Device: Intermittent pneumatic compression device Consult Discharge Plan - Plan Referrals: KAILEE GUPTA [Other] - 02/15/17 10:00 am (HIS OFFICE IS LOCATED NEXT TO [facility]) Melvin Carcamo MD [Partnered Physician] - 02/16/17 2:30 pm Prescriptions: Ipratropium/Albuterol Neb [Duoneb] 3 ml IH [id number] PRN #30 inhsol PRN Reason: Shortness Of Breath/Wheezing hydrALAZINE [HydrALAZINE] 25 mg PO Q8HR #90 tablet cephALEXin [Keflex] 250 mg PO BID 7 Days #14 capsule Metoprolol [Lopressor] 25 mg PO BID #60 tablet
[2017-02-12 11:08] LABS: Hepatitis B Surface Antibody 0.39 mIU/mL
[2017-02-13 02:39] LABS: Kappa Qnt Free Light Chains 9.57 mg/dL (0.33-1.94); Lambda Qnt Free Light Chains 5.7 mg/dL (0.57-2.63)
[2017-02-13 18:45] LABS: Alpha 2 Globulin (PEP) 1.02 g/dL (0.48-1.05); Beta Globulin (PEP) 0.77 g/dL (0.48-1.10)
[2017-02-15 08:46] LABS: IFE Reflexed NOT DONE
== END 2017-02-12 12:34 | disposition home health service (06) | DRG 682 ==
LOC: 2NNU 04:02 → EMEROO 04:02 → 2NNU 08:15
PROVIDERS: ADMIT Hospitalist; ATTEND Internal Medicine